=== PATIENT | male | born 1970 | race African-American/Black ===

== ENCOUNTER 2020-09-30 12:21 | Inpatient (IN) ==
[2020-09-30] MEDS ORDERED: SODIUM CHLORIDE 0.9% 1000ML 500 ML IV ONE (12:38)
--- NOTE | 2020-09-30 12:46 | Emergency Department Note ---
History of Present Illness General Chief complaint: Respiratory Problems Time Seen by Provider: 09/30/20 12:29 Source: patient and old records reviewed Mode of arrival: EMS Limitations: no limitations History of Present Illness This patient is a 49-year-old previously healthy male who comes in after having shortness of breath for the last 4 days. He is lost his taste and smell as well he has had a cough. He feels he is been chemo but his fluids no nausea vomiting or diarrhea. He is currently inmate at [facility] and they have a s ignificant Covid outbreak. The patient was hypoxemic with a room O2 sat of 75 per report and they put him on supplemental oxygen and he appears comfortable now. He is able to communicate and tells me he has no significant medical problems no history of any lung problems he is a remote history of smoking. No history of blood clots or heart problems. He denies that he has had a fever with this illness. Home Medications Medication Instructions Recorded Confirmed Type cholecalciferol (vitamin D3) 25 mcg PO DAILY 09/30/20 09/30/20 History [Vitamin D3] ciclesonide [Alvesco] 1 puff INHALATION BID 09/30/20 09/30/20 History ibuprofen 600 mg PO TID PRN 09/30/20 09/30/20 History levalbuterol tartrate [Xopenex HFA] 2 inh INHALATION Q6H 09/30/20 09/30/20 History sertraline 25 mg PO QAM 09/30/20 09/30/20 History sertraline 100 mg PO QAM 09/30/20 09/30/20 History zinc sulfate 220 mg PO BID 09/30/20 09/30/20 History Allergies Allergy/AdvReac Type Severity Reaction Status Date / Time No Known Allergies Allergy Unverified 09/30/20 14:32 Past Med/Surg History Medical History (Updated 09/30/20 @ 19:00 by Dominic Lawson MD) Asthma Post traumatic stress disorder Vertigo Social History Smoking Status: Former smoker Tobacco Type: Cigarettes Preferred Language: Lao Feels Safe at Home: Yes Immunizations: Past medical history, denies cardiac disease, pulmonary disease, diabetes Social historyhe is an inmate since 2016. history of smoking Review of Systems A total of 10 systems reviewed and were otherwise negative Physical Exam Vital Signs Vital Signs - 24 hr 09/30/20 12:09 09/30/20 12:28 09/30/20 12:37 Temperature 36.9 C Temperature Source Oral Pulse Rate 102 H 103 H 100 H Pulse Rate from SpO2 Sensor 103 H 100 H Pulse Rhythm Regular Pulse Strength Normal Respiratory Rate 28 H 28 H 18 Respiratory Effort / Characteristics Non-Labored Spontaneous Respiratory Depth Shallow Respiratory Pattern Tachypnea Blood Pressure 99/82 L 99/82 L 125/87 Blood Pressure Mean 87 84 99 Blood Pressure Position Lying Pulse Oximetry 88 L 97 98 Oxygen Delivery Method Room Air Non-rebreather Non-rebreather Oxygen Flow Rate 15 15 Sepsis Recent Fever Within 48 Hours No Sepsis New/Unexplained Change in Mental Status N/A Sepsis Action Taken by Nursing Physician Notified Oxygen Flow Rate - Titration Pulse Oximetry Post Tiitration 09/30/20 12:38 09/30/20 13:00 09/30/20 13:30 Temperature Temperature Source Pulse Rate 102 H 102 H 96 H Pulse Rate from SpO2 Sensor 102 H 95 H Pulse Rhythm Regular Pulse Strength Respiratory Rate 19 29 H 28 H Respiratory Effort / Characteristics Respiratory Depth Respiratory Pattern Blood Pressure 114/76 108/80 Blood Pressure Mean 84 99 Blood Pressure Position Pulse Oximetry 92 98 97 Oxygen Delivery Method Non-rebreather Non-rebreather Oxygen Flow Rate 15 15 Sepsis Recent Fever Within 48 Hours Sepsis New/Unexplained Change in Mental Status Sepsis Action Taken by Nursing Oxygen Flow Rate - Titration 15 Pulse Oximetry Post Tiitration 96 09/30/20 14:00 09/30/20 14:30 09/30/20 15:00 Temperature Temperature Source Pulse Rate 93 H 92 H 96 H Pulse Rate from SpO2 Sensor 94 H 93 H 95 H Pulse Rhythm Pulse Strength Respiratory Rate 27 H 25 H 19 Respiratory Effort / Characteristics Respiratory Depth Respiratory Pattern Blood Pressure 97/61 L 119/71 100/63 Blood Pressure Mean 65 75 74 Blood Pressure Position Pulse Oximetry 97 98 97 Oxygen Delivery Method Oxygen Flow Rate Sepsis Recent Fever Within 48 Hours Sepsis New/Unexplained Change in Mental Status Sepsis Action Taken by Nursing Oxygen Flow Rate - Titration Pulse Oximetry Post Tiitration 09/30/20 15:30 09/30/20 16:30 09/30/20 17:00 Temperature Temperature Source Pulse Rate 94 H Pulse Rate from SpO2 Sensor 94 H 89 90 Pulse Rhythm Pulse Strength Respiratory Rate 24 22 24 Respiratory Effort / Characteristics Respiratory Depth Respiratory Pattern Blood Pressure 95/57 L 119/83 126/85 Blood Pressure Mean 68 97 95 Blood Pressure Position Pulse Oximetry 98 94 95 Oxygen Delivery Method Oxygen Flow Rate Sepsis Recent Fever Within 48 Hours Sepsis New/Unexplained Change in Mental Status Sepsis Action Taken by Nursing Oxygen Flow Rate - Titration Pulse Oximetry Post Tiitration 09/30/20 17:30 Temperature Temperature Source Pulse Rate Pulse Rate from SpO2 Sensor 91 H Pulse Rhythm Pulse Strength Respiratory Rate 25 H Respiratory Effort / Characteristics Respiratory Depth Respiratory Pattern Blood Pressure 145/94 H Blood Pressure Mean 102 Blood Pressure Position Pulse Oximetry 97 Oxygen Delivery Method Oxygen Flow Rate Sepsis Recent Fever Within 48 Hours Sepsis New/Unexplained Change in Mental Status Sepsis Action Taken by Nursing Oxygen Flow Rate - Titration Pulse Oximetry Post Tiitration General: Well developed well nourished middle-age male who is on supplemental oxygen and with this appears comfortable in no acute distress. Normal speech HEENT: Normal cephalic atraumatic. Pupils are equal round and reactive to light. Extraocular movements are intact. Oropharynx is pink with moist mucous membranes. No swelling of the mouth lips or tongue. Neck: Supple with a midline trachea. No meningeal signs or stiffness, no JVD or bruits. No Stridor. Chest: Speaking full sentences, mild increased expiratory effort but seems comfortable with the oxygen Heart: Regular rate and rhythm without murmurs or gallops. Abdomen: Soft nontender, nondistended without rebound guarding or rigidity. Extremities: No cyanosis clubbing or edema. No calf tenderness or assymetry Spine/Back. Non tender to palpation. No CVA tenderness Skin: Good turgor without rashes. Neurologic exam: Cranial nerves two through 12 are intact. Motor and sensation are intact and symmetrical throughout. Course Administered Medications Remdesivir 200 mg/ Sodium (Chloride) 250 mls @ 125 mls/hr IV ONE ONE; Protocol Stop: 09/30/20 19:59 Last Admin: 09/30/20 18:30 Dose: 125 mls/hr Documented by: [id number] Discontinued Medications Dexamethasone (Dexamethasone Sod Inj 10 Mg/Ml Vial) 6 mg IV NOW ONE Stop: 09/30/20 14:14 Last Admin: 09/30/20 14:54 Dose: 6 mg Documented by: [id number] Sodium Chloride (Nss 1000ml) 500 mls @ 999 mls/hr IV .Q31M ONE Stop: 09/30/20 13:08 Last Infusion: 09/30/20 14:54 Dose: 0 mls/hr Documented by: [id number] Admin: 09/30/20 12:47 Dose: 999 mls/hr Documented by: [id number] Critical Care Time Critical Care Time: Yes (30) Total Critical Care Time: 30 Due to the patient's hypoxemia, Covid illness, need for supplemental oxygen, frequent monitoring of his vital signs and consultation and hospitalization, I have personally spent greater than 30 minutes of critical care time in the direct management of this patient. This includes bedside care, interpretation of diagnostic studies, and testing, discussion with consultants, patient, and family members, and other required patient management activities. This 30 minutes is in excess of all separately billable procedures. Medical Decision Making Differential Diagnosis Covid, sepsis, anemia, acute coronary syndrome, arrhythmia, PE, pneumonia, pneumothorax, electrolyte or metabolic Medical Records Attestation: I reviewed the patient's medical records. Home Medications Current Medication List: was personally reviewed by me Laboratory Data Attestation: I reviewed the patient's lab results. Result diagrams: 09/30/20 12:39 09/30/20 15:51 Lab Results 09/30/20 09/30/20 09/30/20 Range/Units 12:38 12:39 12:39 WBC 8.65 (4.8-10.8) K/uL RBC 5.05 (4.7-6.1) M/uL Hgb 15.0 (14.0-18.0) g/dL Hct 43.3 (42-52) % MCV 85.7 (80-100) fL MCH 29.7 (25-34) pg MCHC 34.6 (32-36) g/dL RDW Std Deviation 41.7 (36.4-46.3) fL RDW Coeff of Anamaria 13.3 (11.5-14.5) % Plt Count 220 (130-400) K/uL MPV 10.9 H (7.4-10.4) fL Immature Gran % (Auto) 0.5 % Neut % (Auto) 81.7 % Lymph % (Auto) 10.9 % Mathews % (Auto) 6.5 % Eos % (Auto) 0.2 % Baso % (Auto) 0.2 % Neut # (Auto) 7.07 H (1.4-6.5) K/uL Lymph # (Auto) 0.94 L (1.2-3.4) K/uL Mathews # (Auto) 0.56 (0.11-0.59) K/uL Eos # (Auto) 0.02 (0-0.5) K/uL Baso # (Auto) 0.02 (0-0.2) K/uL Immature Gran # (Auto) 0.04 H (0.00-0.02) K/uL PT 11.5 (9.0-12.0) Seconds INR 1.1 (0.9-1.1) APTT 27.6 (21.0-31.0) Seconds PTT Ratio 1.0 D-Dimer (0-500) ug/L FEU Sodium Cancelled Potassium Cancelled Chloride Cancelled Carbon Dioxide Cancelled Anion Gap Cancelled BUN Cancelled Creatinine Cancelled Est Cr Clr Drug Dosing Cancelled Est GFR ( Amer) Cancelled Est GFR (Non-Af Amer) Cancelled BUN/Creatinine Ratio Cancelled Glucose Cancelled Lactate (0.4-2.0) mmol/L Calcium Cancelled Magnesium Cancelled Ferritin (8-388) ng/ml Total Bilirubin Cancelled AST Cancelled ALT Cancelled Alkaline Phosphatase Cancelled Lactate Dehydrogenase (87-241) U/L Total Creatine Kinase (39-308) U/L Troponin I Cancelled C-Reactive Protein (0-0.29) mg/dl NT-Pro-B Natriuret Pep Cancelled Total Protein Cancelled Albumin Cancelled Globulin Cancelled Albumin/Globulin Ratio Cancelled Procalcitonin (0-0.5) ng/ml COVID-19 Eval Order SARS-CoV-2 (PCR) (Negative) Influenza Type A (PCR) (Neg) Influenza Type B (PCR) (Neg) RSV (RT-PCR) (Neg) Blood Type Antibody Screen 09/30/20 09/30/20 09/30/20 Range/Units 12:39 12:55 12:55 WBC (4.8-10.8) K/uL RBC (4.7-6.1) M/uL Hgb (14.0-18.0) g/dL Hct (42-52) % MCV (80-100) fL MCH (25-34) pg MCHC (32-36) g/dL RDW Std Deviation (36.4-46.3) fL RDW Coeff of Anamaria (11.5-14.5) % Plt Count (130-400) K/uL MPV (7.4-10.4) fL Immature Gran % (Auto) % Neut % (Auto) % Lymph % (Auto) % Mathews % (Auto) % Eos % (Auto) % Baso % (Auto) % Neut # (Auto) (1.4-6.5) K/uL Lymph # (Auto) (1.2-3.4) K/uL Mathews # (Auto) (0.11-0.59) K/uL Eos # (Auto) (0-0.5) K/uL Baso # (Auto) (0-0.2) K/uL Immature Gran # (Auto) (0.00-0.02) K/uL PT (9.0-12.0) Seconds INR (0.9-1.1) APTT (21.0-31.0) Seconds PTT Ratio D-Dimer (0-500) ug/L FEU Sodium Potassium Chloride Carbon Dioxide Anion Gap BUN Creatinine Est Cr Clr Drug Dosing Est GFR ( Amer) Est GFR (Non-Af Amer) BUN/Creatinine Ratio Glucose Lactate 2.1 H* (0.4-2.0) mmol/L Calcium Magnesium Ferritin (8-388) ng/ml Total Bilirubin AST ALT Alkaline Phosphatase Lactate Dehydrogenase (87-241) U/L Total Creatine Kinase (39-308) U/L Troponin I C-Reactive Protein (0-0.29) mg/dl NT-Pro-B Natriuret Pep Total Protein Albumin Globulin Albumin/Globulin Ratio Procalcitonin (0-0.5) ng/ml COVID-19 Eval Order CovFluRsv at [facility] SARS-CoV-2 (PCR) POSITIVE A* (Negative) Influenza Type A (PCR) Negative (Neg) Influenza Type B (PCR) Negative (Neg) RSV (RT-PCR) Negative (Neg) Blood Type Antibody Screen 09/30/20 09/30/20 09/30/20 Range/Units 15:51 15:51 15:51 WBC (4.8-10.8) K/uL RBC (4.7-6.1) M/uL Hgb (14.0-18.0) g/dL Hct (42-52) % MCV (80-100) fL MCH (25-34) pg MCHC (32-36) g/dL RDW Std Deviation (36.4-46.3) fL RDW Coeff of Anamaria (11.5-14.5) % Plt Count (130-400) K/uL MPV (7.4-10.4) fL Immature Gran % (Auto) % Neut % (Auto) % Lymph % (Auto) % Mathews % (Auto) % Eos % (Auto) % Baso % (Auto) % Neut # (Auto) (1.4-6.5) K/uL Lymph # (Auto) (1.2-3.4) K/uL Mathews # (Auto) (0.11-0.59) K/uL Eos # (Auto) (0-0.5) K/uL Baso # (Auto) (0-0.2) K/uL Immature Gran # (Auto) (0.00-0.02) K/uL PT (9.0-12.0) Seconds INR (0.9-1.1) APTT (21.0-31.0) Seconds PTT Ratio D-Dimer (0-500) ug/L FEU Sodium 132 L Potassium 3.9 Chloride 102 Carbon Dioxide 25 Anion Gap 5.0 BUN 18 Creatinine 1.17 Est Cr Clr Drug Dosing 110.2 Est GFR ( Amer) 84.9 Est GFR (Non-Af Amer) 73.3 BUN/Creatinine Ratio 15.5 Glucose 116 H Lactate 1.4 (0.4-2.0) mmol/L Calcium 8.0 L Magnesium 2.8 H Ferritin (8-388) ng/ml Total Bilirubin 0.9 AST 50 H ALT 53 Alkaline Phosphatase 49 Lactate Dehydrogenase (87-241) U/L Total Creatine Kinase (39-308) U/L Troponin I < 0.015 C-Reactive Protein (0-0.29) mg/dl NT-Pro-B Natriuret Pep 9 Total Protein 7.4 Albumin 2.6 L Globulin 4.8 H Albumin/Globulin Ratio 0.5 L Procalcitonin (0-0.5) ng/ml COVID-19 Eval Order SARS-CoV-2 (PCR) (Negative) Influenza Type A (PCR) (Neg) Influenza Type B (PCR) (Neg) RSV (RT-PCR) (Neg) Blood Type A Positive Antibody Screen NEGATIVE 09/30/20 09/30/20 09/30/20 Range/Units 15:51 15:51 15:51 WBC (4.8-10.8) K/uL RBC (4.7-6.1) M/uL Hgb (14.0-18.0) g/dL Hct (42-52) % MCV (80-100) fL MCH (25-34) pg MCHC (32-36) g/dL RDW Std Deviation (36.4-46.3) fL RDW Coeff of Anamaria (11.5-14.5) % Plt Count (130-400) K/uL MPV (7.4-10.4) fL Immature Gran % (Auto) % Neut % (Auto) % Lymph % (Auto) % Mathews % (Auto) % Eos % (Auto) % Baso % (Auto) % Neut # (Auto) (1.4-6.5) K/uL Lymph # (Auto) (1.2-3.4) K/uL Mathews # (Auto) (0.11-0.59) K/uL Eos # (Auto) (0-0.5) K/uL Baso # (Auto) (0-0.2) K/uL Immature Gran # (Auto) (0.00-0.02) K/uL PT (9.0-12.0) Seconds INR (0.9-1.1) APTT (21.0-31.0) Seconds PTT Ratio D-Dimer 3170 H* (0-500) ug/L FEU Sodium Potassium Chloride Carbon Dioxide Anion Gap BUN Creatinine Est Cr Clr Drug Dosing Est GFR ( Amer) Est GFR (Non-Af Amer) BUN/Creatinine Ratio Glucose Lactate (0.4-2.0) mmol/L Calcium Magnesium Ferritin 1265.7 H (8-388) ng/ml Total Bilirubin AST ALT Alkaline Phosphatase Lactate Dehydrogenase 612 H (87-241) U/L Total Creatine Kinase 803 H (39-308) U/L Troponin I < 0.015 C-Reactive Protein 14.60 H (0-0.29) mg/dl NT-Pro-B Natriuret Pep Total Protein Albumin Globulin Albumin/Globulin Ratio Procalcitonin (0-0.5) ng/ml COVID-19 Eval Order SARS-CoV-2 (PCR) (Negative) Influenza Type A (PCR) (Neg) Influenza Type B (PCR) (Neg) RSV (RT-PCR) (Neg) Blood Type Antibody Screen 09/30/20 Range/Units 15:51 WBC (4.8-10.8) K/uL RBC (4.7-6.1) M/uL Hgb (14.0-18.0) g/dL Hct (42-52) % MCV (80-100) fL MCH (25-34) pg MCHC (32-36) g/dL RDW Std Deviation (36.4-46.3) fL RDW Coeff of Anamaria (11.5-14.5) % Plt Count (130-400) K/uL MPV (7.4-10.4) fL Immature Gran % (Auto) % Neut % (Auto) % Lymph % (Auto) % Mathews % (Auto) % Eos % (Auto) % Baso % (Auto) % Neut # (Auto) (1.4-6.5) K/uL Lymph # (Auto) (1.2-3.4) K/uL Mathews # (Auto) (0.11-0.59) K/uL Eos # (Auto) (0-0.5) K/uL Baso # (Auto) (0-0.2) K/uL Immature Gran # (Auto) (0.00-0.02) K/uL PT (9.0-12.0) Seconds INR (0.9-1.1) APTT (21.0-31.0) Seconds PTT Ratio D-Dimer (0-500) ug/L FEU Sodium Potassium Chloride Carbon Dioxide Anion Gap BUN Creatinine Est Cr Clr Drug Dosing Est GFR ( Amer) Est GFR (Non-Af Amer) BUN/Creatinine Ratio Glucose Lactate (0.4-2.0) mmol/L Calcium Magnesium Ferritin (8-388) ng/ml Total Bilirubin AST ALT Alkaline Phosphatase Lactate Dehydrogenase (87-241) U/L Total Creatine Kinase (39-308) U/L Troponin I C-Reactive Protein (0-0.29) mg/dl NT-Pro-B Natriuret Pep Total Protein Albumin Globulin Albumin/Globulin Ratio Procalcitonin 0.10 (0-0.5) ng/ml COVID-19 Eval Order SARS-CoV-2 (PCR) (Negative) Influenza Type A (PCR) (Neg) Influenza Type B (PCR) (Neg) RSV (RT-PCR) (Neg) Blood Type Antibody Screen Imaging Data Attestation: I personally reviewed and interpreted this imaging study as follows: My Impression: Chest x-ray ECG Data Attestation: I personally reviewed and interpreted this ECG as follows: Indication: + chest pain MDM Narrative This patient comes in with respiratory distress distress/hypoxemia CC seems much more comfortable with oxygen. He is speaking full sentences now. He likely has Covid he was placed on respiratory isolation. There have been multiple exposures to Covid and he was previously healthy otherwise. Extensive work-up done here including multiple blood test x-ray EKG Covid testing, etc. he remained stable on supplemental oxygen. His chest x-ray shows diffuse infiltrates consistent with Covid with some asymmetry to the right. He has no white count to suggest bacterial infection. His Covid test did come back positive. He has no significant electrolyte or metabolic abnormality. EKG does not suggest cardiac disease. He did receive IV hydration as well as IV Decadron. His lactic acid was mildly elevated 2.1 but it did clear with fluid resuscitation to 1.4. I do think he needs to be admitted/observe for his Covid treatment and hypoxemia. I have consulted the hospitalist to see him in the ER for these measures Continuous cardiac monitoring: Order was placed in the EMR for continuous cardiac monitoring which shows normal sinus rhythm at a rate of 95 Impression & Plan COVID-19, Hypoxemia, SOB (shortness of breath), Elevated lactic acid level Discharge Plan Visit Data Chief Complaint: Respiratory Problems ED Provider: Dominic Lawson Discharge Problem: COVID-19, Hypoxemia, SOB (shortness of breath), Elevated lactic acid level Forms Stand Alone Forms: My [facility] Revert Prescriptions Prescriptions: No Action sertraline 100 mg Tablet 100 mg PO QAM RF: 0 zinc sulfate 220 mg Tablet 220 mg PO BID RF: 0 sertraline 25 mg Tablet 25 mg PO QAM RF: 0 ibuprofen 600 mg Tablet 600 mg PO TID PRN (Reason: Pain) RF: 0 cholecalciferol (vitamin D3) [Vitamin D3] 25 mcg (1,000 unit) Capsule 25 mcg PO DAILY RF: 0 levalbuterol tartrate [Xopenex HFA] 45 mcg/actuation Hfa Aerosol Inhaler 2 inh INHALATION Q6H RF: 0 Alvesco 160 mcg/actuation Hfa Aerosol Inhaler 1 puff INHALATION BID RF: 0
[2020-09-30 12:51] LABS: Basophils # (auto) 0.02 K/uL (0-0.2); Basophils % (auto) 0.2 %; Eosinophils # (auto) 0.02 K/uL (0-0.5); Eosinophils % (auto) 0.2 %; Hematocrit (blood only) 43.3 % (42-52); Immature Granulocytes # (auto) 0.04 K/uL (0.00-0.02); Immature Granulocytes % (auto) 0.5 %; Lymphocytes # (auto) 0.94 K/uL (1.2-3.4); Lymphocytes % (auto) 10.9 %; Mean Corpuscular Hemoglobin 29.7 pg (25-34); Mean Corpuscular Hgb Conc 34.6 g/dL (32-36); Mean Corpuscular Volume 85.7 fL (80-100); Mean Platelet Volume 10.9 fL (7.4-10.4); Monocytes # (auto) 0.56 K/uL (0.11-0.59); Monocytes % (auto) 6.5 %; Neutrophils # (auto) 7.07 K/uL (1.4-6.5); Neutrophils % (auto) 81.7 %; Platelet Count 220 K/uL (130-400); RDW Coefficient of Variation 13.3 % (11.5-14.5); RDW Standard Deviation 41.7 fL (36.4-46.3); Red Blood Count 5.05 M/uL (4.7-6.1); White Blood Count 8.65 K/uL (4.8-10.8)
--- NOTE | 2020-09-30 13:02 | Electrocardiogram Report ---
Test Reason : Blood Pressure : / mmHG Vent. Rate : 100 BPM Atrial Rate : 100 BPM P-R Int : 148 ms QRS Dur : 084 ms QT Int : 332 ms P-R-T Axes : 033 -29 000 degrees QTc Int : 428 ms Sinus tachycardia Otherwise Normal ECG No previous ECGs available Confirmed by Jr Zeng [id number]) on 09/30/2020 1:02:28 PM Referred By: Reshma CERDA Confirmed By:Jr Zeng
--- NOTE | 2020-09-30 13:13 | XRay Report ---
XR chest 1V portable CLINICAL HISTORY: SEPSIS COMPARISON STUDY: No previous studies for comparison. FINDINGS: The heart is the upper limits of normal in size. There are asymmetric bilateral multifocal airspace opacities consistent with a multifocal pneumonia. The findings are more severe on the right. There are no significant pleural effusions.[ IMPRESSION: Asymmetric multifocal airspace opacities right greater than left consistent with a multif ocal pneumonia ACT 112: Negative or not required by law. Electronically signed by: Azam Lott M.D. 09/30/2020 1:12 PM
[2020-09-30 13:16] LABS: INR 1.1 (0.9-1.1); Partial Thromboplastin Time 27.6 Seconds (21.0-31.0); Prothrombin Time 11.5 Seconds (9.0-12.0)
[2020-09-30] MEDS ORDERED: DEXAMETHASONE SOD INJ 10 MG/ML VIAL IV ONE (14:13)
[2020-09-30 14:20] LABS: Influenza A virus by PCR Negative (Neg); Influenza B virus by PCR Negative (Neg); RSV by PCR Negative (Neg)
[2020-09-30 14:24] LABS: SARS CoV2 RNA(COVID-19) InHosp POSITIVE (Negative)
--- NOTE | 2020-09-30 14:52 | History & Physical Report ---
Date of Service September 30, 2020 Assessment & Plan (1) Acute respiratory failure with hypoxia: Aim O2 sats > 90%. Secondary to COVID-19 pneumonia. Given severity of sudden onset oxygen requirement and elevated D-dimer will get CT for PE to rule this out. Procalcitonin negative however asymmetric findings on CXR mildly concerning for bacterial pneumonia - will repeat procalcitonin in AM. (2) Pneumonia due to COVID-19 virus: Dexamethasone 6mg IV daily for total 10 days. Given symptoms for only 4 days and severity of illness will give Remdesivir and convalescent plasma (verbal consent gained with blood consent sheet given to patient) (3) Asthma: Continue Alvesco or hospital formulary equivalent No wheezing to suggest acute exacerbation (4) Post traumatic stress disorder: Continue sertraline 125mg PO daily (5) DVT prophylaxis: Elevated d-dimer. BMI > 35. Therefore will give increased dose prophylaxis 0.5mg/kg BID. Admission and Anticipated Discharge Date Admission Date: September 30, 2020 History of Present Illness Chief Complaint: Shortness of breath Primary Care Provider: PRASHANT Cortes is a 49-year-old male from [facility] with a 4-day history of shortness of breath, productive cough. O2 sats [facility] today were 75% on room air. He was placed on a nonrebreather mask at 15 L with improved O2 sats of 92%. The patient significantly improved since arrival in the ER and start oxygen. Reports his main symptom is shortness of breath worse with coughing, exertion and lying flat. He notes a history of asthma but rarely requires his albuterol inhaler and hasn't helped much during this current illness. Productive cough with thick sputum. Other symptoms include loss of taste and smell, fatigue, mild headache and myalgias. He denies any fever, chills, sore throat, diarrhea, nausea/vomiting, chest or abdominal pain. In the ER his CXR concerning for multifocal pneumonia, subsequent SARS-COV2 PCR positive, influenza and RSV negative. He was given dexamethasone 6mg IV and referred to medicine for admission and ongoing management of COVID-19 pneumonia. Allergies Allergy/AdvReac Type Severity Reaction Status Date / Time No Known Allergies Allergy Unverified 09/30/20 14:32 Home Medications Medication Instructions Recorded Confirmed Type cholecalciferol (vitamin D3) 25 mcg PO DAILY 09/30/20 09/30/20 History [Vitamin D3] ciclesonide [Alvesco] 1 puff INHALATION BID 09/30/20 09/30/20 History ibuprofen 600 mg PO TID PRN 09/30/20 09/30/20 History levalbuterol tartrate [Xopenex HFA] 2 inh INHALATION Q6H 09/30/20 09/30/20 History sertraline 25 mg PO QAM 09/30/20 09/30/20 History sertraline 100 mg PO QAM 09/30/20 09/30/20 History zinc sulfate 220 mg PO BID 09/30/20 09/30/20 History Past Med/Surg History Medical History Asthma Post traumatic stress disorder Vertigo Social History Smoking Status: Former smoker Tobacco Type: Cigarettes Hx Alcohol Use: No Hx Substance Use: No Preferred Language: Urdu Communication Ability: Effective Outdoor Emergency Care Technician Required: No Beliefs That Will Affect Care: None Current Living Situation: Other Current Living Situation Comment: [facility] Other Information That Helps Us Care for You: No Feels Safe at Home: Yes Assistive Devices: None Review of Systems Review of Systems: All systems reviewed & are unremarkable except as noted in HPI & below Physical Exam Constitutional: well developed, well nourished and + acute distress (respiratory) Eyes: PERRL, conjunctivae normal, anicteric sclerae ENMT: external ear and nose normal, oropharynx normal Neck: trachea midline, no thyromegaly Respiratory: + retractions, + uses accessory muscles, + cough and able to speak in complete sentences Auscultation: + diminished lung sounds (bibasal) and + crackles (bibasal); no rhonchi and no wheezes Cardiovascular: Rate/Rhythm: regular rhythm and + tachycardic Heart Sounds: no murmur Vessels: no JVD Extremities: normal capillary refill; no calf tenderness and no pedal edema Gastrointestinal (Abdomen): normal bowel sounds, soft, nontender, no hepatosplenomegaly Musculoskeletal: no cyanosis or clubbing, extremities motor strength 5/5 Skin: no rashes, warm and dry Neurologic: moves all extremities and awake; no focal motor deficits and not confused Speech / Cognition: normal speech Psychiatric: A+Ox3, euthymic affect Results & Data Results & Data ([facility]) Vital Signs (Past 12 Hours) Vital Signs Temp Pulse Resp BP Pulse Ox 09/30/20 13:00 102 H 29 H 114/76 98 09/30/20 12:38 102 H 19 96 09/30/20 12:37 100 H 18 125/87 98 09/30/20 12:28 103 H 28 H 99/82 L 97 09/30/20 12:09 36.9 C 102 H 28 H 99/82 L 88 L Diagnostic Findings XR chest 1V portable IMPRESSION: Asymmetric multifocal airspace opacities right greater than left consistent with a multifocal pneumonia ECG Indication: SOB/dyspnea Rate (beats per minute): 100 Rhythm: sinus tachycardia Findings: no acute ischemic change Comparison ECG Date: no prior available Code Status & VTE Plan Code Status Full VTE Prophylaxis Plan VTE Prophylaxis will be ordered: Yes PG Care Time/CCT Total # of Minutes Spent Total Time Spent with Patient: Total time spent is greater than 50% in coordination of care (as documented) at patient's floor/unit and/or counseling patient: Coding Level of Care Code 98464 Initial Inpt Care Lvl 3 Diagnoses Acute respiratory failure with hypoxia J96.01 Pneumonia due to COVID-19 virus U07.1; J12.82 Asthma J45.909 Post traumatic stress disorder F43.10 DVT prophylaxis Z29.9
[2020-09-30 16:36] LABS: Alanine Aminotransferase 53 U/L (12-78); Albumin Level 2.6 gm/dl (3.4-5.0); Aspartate Aminotransferase 50 U/L (15-37); BUN Creatinine Ratio 15.5 (10-20); Blood Urea Nitrogen 18 mg/dl (7-18); Carbon Dioxide 25 mmol/L (21-32); Chloride 102 mmol/L (98-107); Creatinine Clr Calc Pharmacy 110.2 ml/min; Est GFR (African American) 84.9; Est GFR (Non-African American) 73.3; Glucose 116 mg/dl (70-99); Magnesium 2.8 mg/dl (1.8-2.4); Potassium 3.9 mmol/L (3.5-5.1); Sodium 132 mmol/L (136-145)
[2020-09-30 16:40] LABS: Creatine Kinase 803 U/L (39-308); Ferritin 1265.7 ng/ml (8-388); Troponin I < 0.015 ng/ml (0-0.045)
[2020-09-30 16:42] LABS: Albumin Globulin Ratio 0.5 (0.9-2); Alkaline Phosphatase 49 U/L (45-117); Bilirubin,Total 0.9 mg/dl (0.2-1); Globulin 4.8 gm/dl (2.5-4.0); NT Pro B Type Natriuretic Pept 9 pg/ml (0-450); Total Protein 7.4 gm/dl (6.4-8.2); Troponin I < 0.015 ng/ml (0-0.045)
[2020-09-30 16:44] LABS: D Dimer 3170 ug/L FEU (0-500)
[2020-09-30] MEDS ORDERED: REMDESIVIR 200 MG in SODIUM CHLORIDE 0.9% 210 ML IV ONE (18:00)
[2020-09-30] MEDS ORDERED: SODIUM CHLORIDE 0.9% 10ML FLUSH IV SCH (20:00)
[2020-09-30] MEDS ORDERED: POLYETHYLENE (MIRALAX) 17 GM PACK PO PRN (21:17)
[2020-09-30] MEDS ORDERED: ALUMINUM/MAGNESIUM SUSP 30 ML UDC PO PRN (21:17)
[2020-09-30] MEDS ORDERED: ACETAMINOPHEN 325 MG TAB PO PRN (21:17)
[2020-09-30] MEDS ORDERED: ONDANSETRON INJ 2 MG/ML 2 ML VIAL IV PRN (21:17)
[2020-09-30] MEDS: SODIUM CHLORIDE 0.9% 10ML FLUSH IV SCH (21:48)
[2020-09-30] MEDS ORDERED: ENOXAPARIN 0.5 MG/KG SQ SCH (22:45)
[2020-09-30 22:47] LABS: Appearance Urine Clear (Clear); Bacteria Urine Automated Negative (Negative); Bilirubin Urine Negative (Negative); Blood Urine Negative (Negative); Color Urine Dark Yellow; Epithelial Cell Urine Auto >30 /lpf (0-5); Glucose Urine UA Negative (Negative); Ketones Urine Negative (Negative); Leukocyte Esterase Urine Negative (Negative); Nitrite Urine Negative (Negative); Protein Urine 2+ (Negative); RBC Urine Automated 0-4 /hpf (0-4); Specific Gravity Urine 1.026 (1.000-1.030); Urobilinogen Urine Negative (Negative); pH Urine 5.5 (4.5-7.5)
[2020-09-30] MEDS ORDERED: ALBUTEROL HFA 8 GM INHALER INH PRN (22:59)
[2020-09-30 23:04] LABS: Mucus Urine Present (None Prsent)
[2020-09-30] MEDS: ENOXAPARIN 80 MG/0.8 ML SYR SQ SCH (23:29)
[2020-10-01] MEDS ORDERED: OPTIRAY 320 125ml IV ONE (00:07)
[2020-10-01 05:32] LABS: Basophils # (auto) 0.01 K/uL (0-0.2); Basophils % (auto) 0.1 %; Hematocrit (blood only) 40.2 % (42-52); Hemoglobin 13.8 g/dL (14.0-18.0); Immature Granulocytes # (auto) 0.04 K/uL (0.00-0.02); Immature Granulocytes % (auto) 0.5 %; Lymphocytes # (auto) 0.69 K/uL (1.2-3.4); Lymphocytes % (auto) 7.8 %; Mean Corpuscular Hemoglobin 29.5 pg (25-34); Mean Corpuscular Hgb Conc 34.3 g/dL (32-36); Mean Corpuscular Volume 85.9 fL (80-100); Mean Platelet Volume 9.4 fL (7.4-10.4); Monocytes # (auto) 0.55 K/uL (0.11-0.59); Monocytes % (auto) 6.2 %; Neutrophils # (auto) 7.55 K/uL (1.4-6.5); Neutrophils % (auto) 85.4 %; Platelet Count 242 K/uL (130-400); Red Blood Count 4.68 M/uL (4.7-6.1); White Blood Count 8.84 K/uL (4.8-10.8)
[2020-10-01 06:11] LABS: BUN Creatinine Ratio 20.7 (10-20); Creatinine Clr Calc Pharmacy 139.9 ml/min; Est GFR (African American) 113.6; Potassium 4.4 mmol/L (3.5-5.1)
--- NOTE | 2020-10-01 07:38 | CT Scan Report ---
CT ANGIOGRAM OF THE CHEST CLINICAL HISTORY: Cough and dyspnea. COMPARISON STUDY: Chest x-ray dated 09/30/2020. TECHNIQUE: Following the IV administration of 115 cc of Optiray 320, CT angiogram of the chest was pe rformed from the upper abdomen to the thoracic inlet utilizing the pulmonary embolus protocol. Images are reviewed in the axial, sagittal, and coronal planes. 3-D MIPS images are created and assessed. I V contrast was administered without complication. A dose lowering technique was utilized adhering to the principles of ALARA. CT DOSE: 586.68 mGycm FINDINGS: Thyroid: Imaged portions of the thyroid gland are normal in size and attenuation. Thoracic aorta: The thoracic aorta is normal in caliber and demonstrates standard 3-vessel arch anato my. No dissection is seen. Pulmonary vasculature: The pulmonary trunk is normal in caliber. There are no filling defects identif ied in main or lobar pulmonary branches to suggest pulmonary embolus. Evaluation of the peripheral br anches is degraded by lack of contrast opacification as well as motion artifact. Heart: The heart is normal in size and without pericardial effusion. Lungs and pleural spaces: Multifocal airspace consolidation is seen throughout both lungs. This is mo st confluent at the right lung base. No pleural effusion is identified. The trachea and central airwa ys are clear. Mediastinum: There are scattered subcentimeter mediastinal lymph nodes. Helga: Enlarged hilar lymph nodes measure up to 1.8 cm in short axis. Axillae: There is no axillary lymphadenopathy. Upper abdomen: The liver appears steatotic. There is a small hiatal hernia. Skeletal structures: No lytic or blastic bony lesions are seen. IMPRESSION: 1. There is no evidence of central pulmonary embolus in the main or lobar pulmonary arteries. The seg mental and subsegmental branches are not assessed. 2. Multifocal airspace consolidation is seen throughout both lungs and typical for multifocal pneumon ia. Clinical correlation will be required and radiographic follow-up to resolution is recommended. 3. No pleural effusion is seen. 4. Enlarged hilar lymph nodes are likely reactive. ACT 112: Negative or not required by law. Electronically signed by: Gerardo Barrios M.D. 10/01/2020 7:37 AM
--- NOTE | 2020-10-01 09:50 | Hospitalist Progress Note ---
Date of Service October 01, 2020 Assessment & Plan (1) Acute respiratory failure with hypoxia: Aim O2 sats > 90%. Secondary to COVID-19 pneumonia. no role for antibiotics, procalcitonin normal currently on NRB, try to wean down to nasal canula no distress (2) Pneumonia due to COVID-19 virus: Dexamethasone 6mg IV daily for total 10 days, day 2 received plasma on 09/30 Remdesivir daily x 5 days presented on day 5-6 of symptoms so still in the window for all treatments supportive care with supplemental oxygen, on NRB right now, no distress eating and drinking well anticipate him being here for at least a week to recover (3) Asthma: Continue Alvesco or hospital formulary equivalent No wheezing to suggest acute exacerbation (4) Post traumatic stress disorder: Continue sertraline 125mg PO daily (5) DVT prophylaxis: Elevated d-dimer. BMI > 35. Therefore will give increased dose prophylaxis 0.5mg/kg BID. Admission and Anticipated Discharge Date Admission Date: September 30, 2020 Subjective patient is feeling better than when he was admitted, no distress he is on NRB, saturations 94% he is eating and drinking well reviewed chart, reviewed labs, WBC normal, Cr normal, electrolytes stable CTA chest on admission showed no PE, showed bilateral ground glass opacities Review of Systems Review of Systems: All systems reviewed & are unremarkable except as noted in Subjective Constitutional: no fever, no chills, no sweats, no fatigue and no weakness Respiratory: + dyspnea and + dyspnea on exertion; no cough and no sputum production Cardiovascular: no chest pain and no edema Gastrointestinal: no abdominal pain, no nausea, no vomiting, no constipation and no diarrhea/loose stools Physical Exam Constitutional: well developed, cooperative, comfortable and + overweight; no acute distress Neck: trachea midline, no thyromegaly + thick neck Respiratory: + tachypneic; no respiratory distress and no cough Auscultation: lungs clear to auscultation bilaterally Cardiovascular: RRR, no murmur, no edema Gastrointestinal (Abdomen): normal bowel sounds, soft, nontender, no hepatosplenomegaly Musculoskeletal: no cyanosis or clubbing, extremities motor strength 5/5 Skin: no rashes, warm and dry Neurologic: patellar DTR's 2+ bilat, sensation intact and PERRL, EOMI, accommodation nl, no face palsy, no dysarthria Psychiatric: A+Ox3, euthymic affect Lymphatic: no cervical or axillary lymphadenopathy Results & Data Results & Data ([facility]) Vital Signs (Past 12 Hours) Vital Signs Temp Pulse Pulse Resp BP BP Pulse Ox 10/01/20 03:51 36.5 C 70 16 119/76 94 10/01/20 00:15 78 20 124/76 91 09/30/20 23:50 76 24 139/93 94 09/30/20 23:32 79 26 H 139/93 94 09/30/20 23:30 74 21 139/93 94 09/30/20 23:21 36.8 C 77 28 H 113/87 93 09/30/20 22:51 37.0 C 75 24 124/84 97 09/30/20 22:36 36.9 C 09/30/20 22:35 36.9 C 78 24 117/75 94 09/30/20 22:30 77 22 119/77 96 09/30/20 22:29 36.7 C 75 20 132/93 96 09/30/20 22:20 37.0 C 79 18 129/84 97 Pulse Ox 10/01/20 03:51 10/01/20 00:15 09/30/20 23:50 09/30/20 23:32 09/30/20 23:30 09/30/20 23:21 09/30/20 22:51 09/30/20 22:36 09/30/20 22:35 09/30/20 22:30 09/30/20 22:29 96 09/30/20 22:20 Laboratory Results Laboratory Results - last 24 hr 09/30/20 09/30/20 09/30/20 12:38 12:39 12:39 WBC 8.65 RBC 5.05 Hgb 15.0 Hct 43.3 MCV 85.7 MCH 29.7 MCHC 34.6 RDW Std Deviation 41.7 RDW Coeff of [place] 13.3 Plt Count 220 MPV 10.9 H Immature Gran % (Auto) 0.5 Neut % (Auto) 81.7 Lymph % (Auto) 10.9 [place] % (Auto) 6.5 Eos % (Auto) 0.2 Baso % (Auto) 0.2 Neut # (Auto) 7.07 H Lymph # (Auto) 0.94 L [place] # (Auto) 0.56 Eos # (Auto) 0.02 Baso # (Auto) 0.02 Immature Gran # (Auto) 0.04 H PT 11.5 INR 1.1 APTT 27.6 PTT Ratio 1.0 D-Dimer Sodium Cancelled Potassium Cancelled Chloride Cancelled Carbon Dioxide Cancelled Anion Gap Cancelled BUN Cancelled Creatinine Cancelled Est Cr Clr Drug Dosing Cancelled Est GFR ( Amer) Cancelled Est GFR (Non-Af Amer) Cancelled BUN/Creatinine Ratio Cancelled Glucose Cancelled Lactate Calcium Cancelled Magnesium Cancelled Ferritin Total Bilirubin Cancelled AST Cancelled ALT Cancelled Alkaline Phosphatase Cancelled Lactate Dehydrogenase Total Creatine Kinase Troponin I Cancelled C-Reactive Protein NT-Pro-B Natriuret Pep Cancelled Total Protein Cancelled Albumin Cancelled Globulin Cancelled Albumin/Globulin Ratio Cancelled Procalcitonin Urine Color Urine Appearance Urine pH Ur Specific [place] Urine Protein Urine Glucose (UA) Urine Ketones Urine Blood Urine Nitrite Urine Bilirubin Urine Urobilinogen Ur Leukocyte Esterase Urine WBC (Auto) Urine RBC (Auto) U Hyaline Cast (Auto) U Epithel Cells (Auto) Urine Bacteria (Auto) Ur Renal Epithelial Cell Granular Casts Urine Mucus COVID-19 Eval Order SARS-CoV-2 (PCR) Influenza Type A (PCR) Influenza Type B (PCR) RSV (RT-PCR) Blood Type Antibody Screen 09/30/20 09/30/20 09/30/20 12:39 12:55 12:55 WBC RBC Hgb Hct MCV MCH MCHC RDW Std Deviation RDW Coeff of [place] Plt Count MPV Immature Gran % (Auto) Neut % (Auto) Lymph % (Auto) [place] % (Auto) Eos % (Auto) Baso % (Auto) Neut # (Auto) Lymph # (Auto) [place] # (Auto) Eos # (Auto) Baso # (Auto) Immature Gran # (Auto) PT INR APTT PTT Ratio D-Dimer Sodium Potassium Chloride Carbon Dioxide Anion Gap BUN Creatinine Est Cr Clr Drug Dosing Est GFR ( Amer) Est GFR (Non-Af Amer) BUN/Creatinine Ratio Glucose Lactate 2.1 H* Calcium Magnesium Ferritin Total Bilirubin AST ALT Alkaline Phosphatase Lactate Dehydrogenase Total Creatine Kinase Troponin I C-Reactive Protein NT-Pro-B Natriuret Pep Total Protein Albumin Globulin Albumin/Globulin Ratio Procalcitonin Urine Color Urine Appearance Urine pH Ur Specific [place] Urine Protein Urine Glucose (UA) Urine Ketones Urine Blood Urine Nitrite Urine Bilirubin Urine Urobilinogen Ur Leukocyte Esterase Urine WBC (Auto) Urine RBC (Auto) U Hyaline Cast (Auto) U Epithel Cells (Auto) Urine Bacteria (Auto) Ur Renal Epithelial Cell Granular Casts Urine Mucus COVID-19 Eval Order CovFluRsv at [facility] SARS-CoV-2 (PCR) POSITIVE A* Influenza Type A (PCR) Negative Influenza Type B (PCR) Negative RSV (RT-PCR) Negative Blood Type Antibody Screen 09/30/20 09/30/20 09/30/20 15:51 15:51 15:51 WBC RBC Hgb Hct MCV MCH MCHC RDW Std Deviation RDW Coeff of [place] Plt Count MPV Immature Gran % (Auto) Neut % (Auto) Lymph % (Auto) [place] % (Auto) Eos % (Auto) Baso % (Auto) Neut # (Auto) Lymph # (Auto) [place] # (Auto) Eos # (Auto) Baso # (Auto) Immature Gran # (Auto) PT INR APTT PTT Ratio D-Dimer Sodium 132 L Potassium 3.9 Chloride 102 Carbon Dioxide 25 Anion Gap 5.0 BUN 18 Creatinine 1.17 Est Cr Clr Drug Dosing 110.2 Est GFR ( Amer) 84.9 Est GFR (Non-Af Amer) 73.3 BUN/Creatinine Ratio 15.5 Glucose 116 H Lactate 1.4 Calcium 8.0 L Magnesium 2.8 H Ferritin Total Bilirubin 0.9 AST 50 H ALT 53 Alkaline Phosphatase 49 Lactate Dehydrogenase Total Creatine Kinase Troponin I < 0.015 C-Reactive Protein NT-Pro-B Natriuret Pep 9 Total Protein 7.4 Albumin 2.6 L Globulin 4.8 H Albumin/Globulin Ratio 0.5 L Procalcitonin Urine Color Urine Appearance Urine pH Ur Specific [place] Urine Protein Urine Glucose (UA) Urine Ketones Urine Blood Urine Nitrite Urine Bilirubin Urine Urobilinogen Ur Leukocyte Esterase Urine WBC (Auto) Urine RBC (Auto) U Hyaline Cast (Auto) U Epithel Cells (Auto) Urine Bacteria (Auto) Ur Renal Epithelial Cell Granular Casts Urine Mucus COVID-19 Eval Order SARS-CoV-2 (PCR) Influenza Type A (PCR) Influenza Type B (PCR) RSV (RT-PCR) Blood Type A Positive Antibody Screen NEGATIVE 09/30/20 09/30/20 09/30/20 15:51 15:51 15:51 WBC RBC Hgb Hct MCV MCH MCHC RDW Std Deviation RDW Coeff of [place]aria Plt Count MPV Immature Gran % (Auto) Neut % (Auto) Lymph % (Auto) [place] % (Auto) Eos % (Auto) Baso % (Auto) Neut # (Auto) Lymph # (Auto) [place] # (Auto) Eos # (Auto) Baso # (Auto) Immature Gran # (Auto) PT INR APTT PTT Ratio D-Dimer 3170 H* Sodium Potassium Chloride Carbon Dioxide Anion Gap BUN Creatinine Est Cr Clr Drug Dosing Est GFR ( Amer) Est GFR (Non-Af Amer) BUN/Creatinine Ratio Glucose Lactate Calcium Magnesium Ferritin 1265.7 H Total Bilirubin AST ALT Alkaline Phosphatase Lactate Dehydrogenase 612 H Total Creatine Kinase 803 H Troponin I < 0.015 C-Reactive Protein 14.60 H NT-Pro-B Natriuret Pep Total Protein Albumin Globulin Albumin/Globulin Ratio Procalcitonin Urine Color Urine Appearance Urine pH Ur Specific [place] Urine Protein Urine Glucose (UA) Urine Ketones Urine Blood Urine Nitrite Urine Bilirubin Urine Urobilinogen Ur Leukocyte Esterase Urine WBC (Auto) Urine RBC (Auto) U Hyaline Cast (Auto) U Epithel Cells (Auto) Urine Bacteria (Auto) Ur Renal Epithelial Cell Granular Casts Urine Mucus COVID-19 Eval Order SARS-CoV-2 (PCR) Influenza Type A (PCR) Influenza Type B (PCR) RSV (RT-PCR) Blood Type Antibody Screen 09/30/20 09/30/20 10/01/20 15:51 22:15 05:10 WBC 8.84 RBC 4.68 L Hgb 13.8 L Hct 40.2 L MCV 85.9 MCH 29.5 MCHC 34.3 RDW Std Deviation 41.0 RDW Coeff of [place]amaria 13.0 Plt Count 242 MPV 9.4 Immature Gran % (Auto) 0.5 Neut % (Auto) 85.4 Lymph % (Auto) 7.8 [place] % (Auto) 6.2 Eos % (Auto) 0.0 Baso % (Auto) 0.1 Neut # (Auto) 7.55 H Lymph # (Auto) 0.69 L [place] # (Auto) 0.55 Eos # (Auto) 0.00 Baso # (Auto) 0.01 Immature Gran # (Auto) 0.04 H PT INR APTT PTT Ratio D-Dimer Sodium Potassium Chloride Carbon Dioxide Anion Gap BUN Creatinine Est Cr Clr Drug Dosing Est GFR ( Amer) Est GFR (Non-Af Amer) BUN/Creatinine Ratio Glucose Lactate Calcium Magnesium Ferritin Total Bilirubin AST ALT Alkaline Phosphatase Lactate Dehydrogenase Total Creatine Kinase Troponin I C-Reactive Protein NT-Pro-B Natriuret Pep Total Protein Albumin Globulin Albumin/Globulin Ratio Procalcitonin 0.10 Urine Color Dark Yellow Urine Appearance Clear Urine pH 5.5 Ur Specific [place] 1.026 Urine Protein 2+ H Urine Glucose (UA) Negative Urine Ketones Negative Urine Blood Negative Urine Nitrite Negative Urine Bilirubin Negative Urine Urobilinogen Negative Ur Leukocyte Esterase Negative Urine WBC (Auto) 1-5 Urine RBC (Auto) 0-4 U Hyaline Cast (Auto) 1-5 U Epithel Cells (Auto) >30 H Urine Bacteria (Auto) Negative Ur Renal Epithelial Cell Not Reportable Granular Casts 1-5 H Urine Mucus Present A COVID-19 Eval Order SARS-CoV-2 (PCR) Influenza Type A (PCR) Influenza Type B (PCR) RSV (RT-PCR) Blood Type Antibody Screen 10/01/20 05:10 WBC RBC Hgb Hct MCV MCH MCHC RDW Std Deviation RDW Coeff of Anamaria Plt Count MPV Immature Gran % (Auto) Neut % (Auto) Lymph % (Auto) [place] % (Auto) Eos % (Auto) Baso % (Auto) Neut # (Auto) Lymph # (Auto) [place] # (Auto) Eos # (Auto) Baso # (Auto) Immature Gran # (Auto) PT INR APTT PTT Ratio D-Dimer Sodium 133 L Potassium 4.4 Chloride 103 Carbon Dioxide 24 Anion Gap 6.0 BUN 19 H Creatinine 0.92 Est Cr Clr Drug Dosing 139.9 Est GFR ( Amer) 113.6 Est GFR (Non-Af Amer) 98.0 BUN/Creatinine Ratio 20.7 H Glucose 148 H Lactate Calcium 8.0 L Magnesium Ferritin Total Bilirubin AST ALT Alkaline Phosphatase Lactate Dehydrogenase Total Creatine Kinase Troponin I C-Reactive Protein NT-Pro-B Natriuret Pep Total Protein Albumin Globulin Albumin/Globulin Ratio Procalcitonin Urine Color Urine Appearance Urine pH Ur Specific [place] Urine Protein Urine Glucose (UA) Urine Ketones Urine Blood Urine Nitrite Urine Bilirubin Urine Urobilinogen Ur Leukocyte Esterase Urine WBC (Auto) Urine RBC (Auto) U Hyaline Cast (Auto) U Epithel Cells (Auto) Urine Bacteria (Auto) Ur Renal Epithelial Cell Granular Casts Urine Mucus COVID-19 Eval Order SARS-CoV-2 (PCR) Influenza Type A (PCR) Influenza Type B (PCR) RSV (RT-PCR) Blood Type Antibody Screen Medications Administered Current Inpatient Medications Acetaminophen (Acetaminophen 325 Mg Tab) 650 mg PO Q4H PRN PRN Reason: Pain or Fever Stop: 10/30/20 21:16 Al Hydrox/Mg Hydrox/Simethicone (Aluminum/Magnesium Susp 30 Ml Udc) 15 ml PO Q4H PRN PRN Reason: Dyspepsia Stop: 10/30/20 21:16 Albuterol (Albuterol Hfa 8 Gm Inhaler) 2 puffs INH Q4H PRN PRN Reason: Wheezing, shortness of breath Stop: 10/30/20 22:59 Enoxaparin Sodium (Enoxaparin 80 Mg/0.8 Ml Syr) 70 mg SQ Q12 ALE Stop: 10/30/20 22:59 Last Admin: 09/30/20 23:29 Dose: 70 mg Documented by: Fluticasone Furoate (Fluticasone Furoate 200mcg 14 Puffs/Inhaler) 1 puffs INH DAILY ALE Stop: 10/31/20 08:59 Remdesivir 100 mg/ Sodium (Chloride) 250 mls @ 250 mls/hr IV Q24H ALE; Protocol Stop: 10/04/20 20:59 Dexamethasone 6 mg/ Syringe 1.5 mls @ 1 mls/min IV QAM ALE Stop: 10/10/20 08:59 Ondansetron HCl (Ondansetron Inj 2 Mg/Ml 2 Ml Vial) 4 mg IV Q6H PRN PRN Reason: Nausea Stop: 10/30/20 21:16 Polyethylene Glycol (Polyethylene (Miralax) 17 Gm Pack) 17 gm PO DAILY PRN PRN Reason: Constipation Stop: 10/30/20 21:16 Sertraline HCl (Sertraline Hcl 100 Mg Tablet) 100 mg PO QAM ALE Stop: 10/31/20 08:59 Sertraline HCl (Sertraline Hcl 50 Mg Tablet) 25 mg PO QAM ALE Stop: 10/31/20 08:59 Sodium Chloride (Sodium Chloride 0.9% 10ml Flush) 30 ml IV Q24H ALE Stop: 10/04/20 20:01 Last Admin: 09/30/20 21:48 Dose: Not Given Documented by: Vitamin D (Cholecalciferol 1,000 Units 25 Mcg Tab) 1,000 units PO DAILY ALE Stop: 10/31/20 08:59 PG Care Time/CCT Total # of Minutes Spent Total Time Spent with Patient: Total time spent is greater than 50% in coordination of care (as documented) at patient's floor/unit and/or counseling patient: Coding Level of Care Code 57192 Subseq Hosp Care Lvl 2 Diagnoses Acute respiratory failure with hypoxia J96.01 Pneumonia due to COVID-19 virus U07.1; J12.82 Asthma J45.909 Post traumatic stress disorder F43.10 DVT prophylaxis Z29.9
[2020-10-01] MEDS: FLUTICASONE FUROATE 200MCG 14 PUFFS/INHALER INH SCH (10:47)
[2020-10-01] MEDS: ENOXAPARIN 80 MG/0.8 ML SYR SQ SCH ×2 (10:48→21:20)
[2020-10-01] MEDS: SERTRALINE HCL 50 MG TABLET PO SCH (10:49)
[2020-10-01] MEDS: CHOLECALCIFEROL 1,000 UNITS 25 MCG TAB PO SCH (10:49)
[2020-10-01] MEDS: SERTRALINE HCL 100 MG TABLET PO SCH (10:50)
[2020-10-01] MEDS: dexAMETHasone 6 MG in SYRINGE 0 ML IV SCH (10:50)
[2020-10-01] MEDS: REMDESIVIR 100 MG in SODIUM CHLORIDE 0.9% 230 ML IV SCH (20:57)
[2020-10-01] MEDS: SODIUM CHLORIDE 0.9% 10ML FLUSH IV SCH (20:58)
[2020-10-02] MEDS: dexAMETHasone 6 MG in SYRINGE 0 ML IV SCH (08:25)
[2020-10-02] MEDS: FLUTICASONE FUROATE 200MCG 14 PUFFS/INHALER INH SCH (08:26)
--- NOTE | 2020-10-02 09:32 | Hospitalist Progress Note ---
Date of Service October 02, 2020 Assessment & Plan (1) Acute respiratory failure with hypoxia: Aim O2 sats > 90%. Secondary to COVID-19 pneumonia. patient breathing comfortably on 9L oxy mask, no distress at all will give Lasix 20mg IV to see if he responds, keep lungs dry, negative fluid balance (2) Pneumonia due to COVID-19 virus: Dexamethasone 6mg IV daily for total 10 days, day 3 received plasma on 09/30 Remdesivir daily x 5 days, day 3 presented on day 5-6 of symptoms so still in the window for all treatments supportive care with supplemental oxygen, 9L oxy mask currently eating and drinking well anticipate him being here for at least a week to recover (3) Asthma: Continue Alves[place] or hospital formulary equivalent No wheezing to suggest acute exacerbation (4) Post traumatic stress disorder: Continue sertraline 125mg PO daily (5) DVT prophylaxis: Elevated d-dimer. BMI > 35. Therefore will give increased dose prophylaxis 0.5mg/kg BID. Admission and Anticipated Discharge Date Admission Date: September 30, 2020 Subjective patient is doing well, no dyspnea, no distress at all he is eating well we discussed laying prone, he said he will try later he is on 9L oxy mask, 90% Review of Systems Review of Systems: All systems reviewed & are unremarkable except as noted in Subjective Physical Exam Constitutional: well developed, cooperative, comfortable and + overweight; no acute distress Neck: trachea midline, no thyromegaly + thick neck Respiratory: normal respiratory effort; no respiratory distress and no cough Auscultation: lungs clear to auscultation bilaterally Cardiovascular: RRR, no murmur, no edema Gastrointestinal (Abdomen): normal bowel sounds, soft, nontender, no hepatosplenomegaly Musculoskeletal: no cyanosis or clubbing, extremities motor strength 5/5 Skin: no rashes, warm and dry Neurologic: patellar DTR's 2+ bilat, sensation intact and PERRL, EOMI, accommodation nl, no face palsy, no dysarthria Psychiatric: A+Ox3, euthymic affect Lymphatic: no cervical or axillary lymphadenopathy Results & Data Results & Data ([facility]) Vital Signs (Past 12 Hours) Vital Signs Temp Pulse Pulse Pulse Resp BP Pulse Ox 10/02/20 08:42 77 10/02/20 08:02 36.7 C 75 20 111/72 90 10/02/20 03:35 37.1 C 72 20 121/63 91 10/02/20 00:52 79 10/01/20 23:30 36.5 C 77 22 117/70 92 10/01/20 22:00 Pulse Ox 10/02/20 08:42 10/02/20 08:02 10/02/20 03:35 10/02/20 00:52 10/01/20 23:30 10/01/20 22:00 92 Medications Administered Current Inpatient Medications Acetaminophen (Acetaminophen 325 Mg Tab) 650 mg PO Q4H PRN PRN Reason: Pain or Fever Stop: 10/30/20 21:16 Al Hydrox/Mg Hydrox/Simethicone (Aluminum/Magnesium Susp 30 Ml Udc) 15 ml PO Q4H PRN PRN Reason: Dyspepsia Stop: 10/30/20 21:16 Albuterol (Albuterol Hfa 8 Gm Inhaler) 2 puffs INH Q4H PRN PRN Reason: Wheezing, shortness of breath Stop: 10/30/20 22:59 Enoxaparin Sodium (Enoxaparin 80 Mg/0.8 Ml Syr) 70 mg SQ Q12 ALE Stop: 10/30/20 22:59 Last Admin: 10/01/20 21:20 Dose: 70 mg Documented by: Fluticasone Furoate (Fluticasone Furoate 200mcg 14 Puffs/Inhaler) 1 puffs INH DAILY [facility] Stop: 10/31/20 08:59 Last Admin: 10/02/20 08:26 Dose: 1 puffs Documented by: Remdesivir 100 mg/ Sodium (Chloride) 250 mls @ 250 mls/hr IV Q24H [facility]; Protocol Stop: 10/04/20 20:59 Last Infusion: 10/01/20 21:57 Dose: Infused Documented by: Dexamethasone 6 mg/ Syringe 1.5 mls @ 1 mls/min IV QAM [facility] Stop: 10/10/20 08:59 Last Admin: 10/02/20 08:25 Dose: 1 mls/min Documented by: Ondansetron HCl (Ondansetron Inj 2 Mg/Ml 2 Ml Vial) 4 mg IV Q6H PRN PRN Reason: Nausea Stop: 10/30/20 21:16 Polyethylene Glycol (Polyethylene (Miralax) 17 Gm Pack) 17 gm PO DAILY PRN PRN Reason: Constipation Stop: 10/30/20 21:16 Sertraline HCl (Sertraline Hcl 100 Mg Tablet) 100 mg PO QAM [facility] Stop: 10/31/20 08:59 Last Admin: 10/01/20 10:50 Dose: 100 mg Documented by: Sertraline HCl (Sertraline Hcl 50 Mg Tablet) 25 mg PO QAM [facility] Stop: 10/31/20 08:59 Last Admin: 10/01/20 10:49 Dose: 25 mg Documented by: Sodium Chloride (Sodium Chloride 0.9% 10ml Flush) 30 ml IV Q24H [facility] Stop: 10/04/20 20:01 Last Admin: 10/01/20 20:58 Dose: 30 ml Documented by: Vitamin D (Cholecalciferol 1,000 Units 25 Mcg Tab) 1,000 units PO DAILY [facility] Stop: 10/31/20 08:59 Last Admin: 10/01/20 10:49 Dose: 1,000 units Documented by: PG Care Time/CCT Total # of Minutes Spent Total Time Spent with Patient: Total time spent is greater than 50% in coordination of care (as documented) at patient's floor/unit and/or counseling patient: Coding Level of Care Code 61261 Subseq Hosp Care Lvl 2 Diagnoses Acute respiratory failure with hypoxia J96.01 Pneumonia due to COVID-19 virus U07.1; J12.82 Asthma J45.909 Post traumatic stress disorder F43.10 DVT prophylaxis Z29.9
[2020-10-02] MEDS ORDERED: FUROSEMIDE 20 MG in SYRINGE 0 ML IV ONE (09:41)
[2020-10-02] MEDS ORDERED: FUROSEMIDE 40 MG/4 ML VIAL IV STA (09:43)
[2020-10-02] MEDS: ENOXAPARIN 80 MG/0.8 ML SYR SQ SCH ×2 (10:02→20:51)
[2020-10-02] MEDS: SERTRALINE HCL 50 MG TABLET PO SCH (10:02)
[2020-10-02] MEDS: CHOLECALCIFEROL 1,000 UNITS 25 MCG TAB PO SCH (10:02)
[2020-10-02] MEDS: SERTRALINE HCL 100 MG TABLET PO SCH (10:02)
[2020-10-02] MEDS: REMDESIVIR 100 MG in SODIUM CHLORIDE 0.9% 230 ML IV SCH (20:51)
[2020-10-02] MEDS: SODIUM CHLORIDE 0.9% 10ML FLUSH IV SCH (20:52)
[2020-10-03 06:22] LABS: Hematocrit (blood only) 38.7 % (42-52); Hemoglobin 13.1 g/dL (14.0-18.0); Mean Corpuscular Hemoglobin 29.3 pg (25-34); Mean Corpuscular Hgb Conc 33.9 g/dL (32-36); Mean Corpuscular Volume 86.6 fL (80-100); Mean Platelet Volume 10.1 fL (7.4-10.4); Platelet Count 346 K/uL (130-400); RDW Standard Deviation 41.5 fL (36.4-46.3); Red Blood Count 4.47 M/uL (4.7-6.1)
[2020-10-03 06:56] LABS: BUN Creatinine Ratio 24.5 (10-20); Calcium 8.7 mg/dl (8.5-10.1); Creatinine Clr Calc Pharmacy 141.5 ml/min; Est GFR (African American) 115.1; Est GFR (Non-African American) 99.3; Potassium 4.3 mmol/L (3.5-5.1)
[2020-10-03] MEDS: ENOXAPARIN 80 MG/0.8 ML SYR SQ SCH ×2 (09:26→19:36)
[2020-10-03] MEDS: FLUTICASONE FUROATE 200MCG 14 PUFFS/INHALER INH SCH (09:26)
[2020-10-03] MEDS: SERTRALINE HCL 50 MG TABLET PO SCH (09:27)
[2020-10-03] MEDS: CHOLECALCIFEROL 1,000 UNITS 25 MCG TAB PO SCH (09:27)
[2020-10-03] MEDS: SERTRALINE HCL 100 MG TABLET PO SCH (09:27)
[2020-10-03] MEDS: dexAMETHasone 6 MG in SYRINGE 0 ML IV SCH (09:28)
--- NOTE | 2020-10-03 16:44 | Hospitalist Progress Note ---
Date of Service October 03, 2020 Assessment & Plan (1) Acute respiratory failure with hypoxia: Aim O2 sats > 90%. Secondary to COVID-19 pneumonia. patient breathing comfortably on 9L oxy mask, no distress at all encouraged him to sit up in a chair he is compliant with self proning during the day (2) Pneumonia due to COVID-19 virus: Dexamethasone 6mg IV daily for total 10 days, day 4 received plasma on 09/30 Remdesivir daily x 5 days, day 4 presented on day 5-6 of symptoms so still in the window for all treatments supportive care with supplemental oxygen, still on 9L oxy mask eating and drinking well anticipate him being here until mid week next week (3) Asthma: Continue [place]ves[place] or hospital formulary equivalent No wheezing to suggest acute exacerbation (4) Post traumatic stress disorder: Continue sertraline 125mg PO daily (5) DVT prophylaxis: Elevated d-dimer. BMI > 35. Therefore will give increased dose prophylaxis 0.5mg/kg BID. Admission and Anticipated Discharge Date Admission Date: September 30, 2020 Subjective patient doing a little better, down to 9L he is walking to the bathroom, had a small BM today, he is making urine continues to eat well he says he wish he would get better faster, he is frustrated encouraged him to sit in a chair BID, use incentive spirometer, he says he will comply labs are stable, WBC is 15k due to dexamethasone Review of Systems Review of Systems: All systems reviewed & are unremarkable except as noted in Subjective Physical Exam Constitutional: well developed, cooperative, comfortable and + overweight; no acute distress Neck: trachea midline, no thyromegaly + thick neck Respiratory: normal respiratory effort; no respiratory distress and no cough Auscultation: lungs clear to auscultation bilaterally Cardiovascular: RRR, no murmur, no edema Gastrointestinal (Abdomen): normal bowel sounds, soft, nontender, no hepatosplenomegaly Musculoskeletal: no cyanosis or clubbing, extremities motor strength 5/5 Skin: no rashes, warm and dry Neurologic: patellar DTR's 2+ bilat, sensation intact and PERRL, EOMI, accommodation nl, no face palsy, no dysarthria Psychiatric: A+Ox3, euthymic affect Lymphatic: no cervical or axillary lymphadenopathy Results & Data Results & Data ([facility]) Vital Signs (Past 12 Hours) Vital Signs Temp Pulse Pulse Pulse Resp BP BP 10/03/20 16:11 37.1 C 94 H 20 128/82 10/03/20 15:06 92 H 10/03/20 12:03 36.5 C 93 H 20 124/74 10/03/20 11:33 68 10/03/20 10:16 10/03/20 07:26 37.3 C 88 20 114/77 Pulse Ox Pulse Ox 10/03/20 16:11 97 10/03/20 15:06 10/03/20 12:03 91 10/03/20 11:33 10/03/20 10:16 97 10/03/20 07:26 89 L Laboratory Results Laboratory Results - last 24 hr 10/03/20 10/03/20 05:21 05:21 WBC 15.70 H RBC 4.47 L Hgb 13.1 L Hct 38.7 L MCV 86.6 MCH 29.3 MCHC 33.9 RDW Std Deviation 41.5 RDW Coeff of Anamaria 13.0 Plt Count 346 MPV 10.1 Sodium 137 Potassium 4.3 Chloride 106 Carbon Dioxide 24 Anion Gap 7.0 BUN 22 H Creatinine 0.91 Est Cr Clr Drug Dosing 141.5 Est GFR ( Amer) 115.1 Est GFR (Non-Af Amer) 99.3 BUN/Creatinine Ratio 24.5 H Glucose 106 H Calcium 8.7 Medications Administered Current Inpatient Medications Acetaminophen (Acetaminophen 325 Mg Tab) 650 mg PO Q4H PRN PRN Reason: Pain or Fever Stop: 10/30/20 21:16 Al Hydrox/Mg Hydrox/Simethicone (Aluminum/Magnesium Susp 30 Ml Udc) 15 ml PO Q4H PRN PRN Reason: Dyspepsia Stop: 10/30/20 21:16 Albuterol (Albuterol Hfa 8 Gm Inhaler) 2 puffs INH Q4H PRN PRN Reason: Wheezing, shortness of breath Stop: 10/30/20 22:59 Enoxaparin Sodium (Enoxaparin 80 Mg/0.8 Ml Syr) 70 mg SQ Q12 [facility] Stop: 10/30/20 22:59 Last Admin: 10/03/20 09:26 Dose: 70 mg Documented by: Fluticasone Furoate (Fluticasone Furoate 200mcg 14 Puffs/Inhaler) 1 puffs INH DAILY [facility] Stop: 10/31/20 08:59 Last Admin: 10/03/20 09:26 Dose: 1 puffs Documented by: Remdesivir 100 mg/ Sodium (Chloride) 250 mls @ 250 mls/hr IV Q24H [facility]; Protocol Stop: 10/04/20 20:59 Last Infusion: 10/02/20 21:52 Dose: Infused Documented by: Dexamethasone 6 mg/ Syringe 1.5 mls @ 1 mls/min IV QAM [facility] Stop: 10/10/20 08:59 Last Admin: 10/03/20 09:28 Dose: 1 mls/min Documented by: Ondansetron HCl (Ondansetron Inj 2 Mg/Ml 2 Ml Vial) 4 mg IV Q6H PRN PRN Reason: Nausea Stop: 10/30/20 21:16 Polyethylene Glycol (Polyethylene (Miralax) 17 Gm Pack) 17 gm PO DAILY PRN PRN Reason: Constipation Stop: 10/30/20 21:16 Sertraline HCl (S[facility]ine Hcl 100 Mg Tablet) [facility] [place]: 10/31/20 08:59 Last Admin: 10/03/20 09:27 Dose: 100 mg Documented by: Sertraline HCl (Sertraline Hcl 50 Mg Tablet) 25 mg PO QAM [facility] Stop: 10/31/20 08:59 Last Admin: 10/03/20 09:27 Dose: 25 mg Documented by: Sodium Chloride (Sodium Chloride 0.9% 10ml Flush) 30 ml IV Q24H [facility] Stop: 10/04/20 20:01 Last Admin: 10/02/20 20:52 Dose: 30 ml Documented by: Vitamin D (Cholecalciferol 1,000 Units 25 Mcg Tab) 1,000 units PO DAILY [facility] Stop: 10/31/20 08:59 Last Admin: 10/03/20 09:27 Dose: 1,000 units Documented by: PG Care Time/CCT Total # of Minutes Spent Total Time Spent with Patient: Total time spent is greater than 50% in coordination of care (as documented) at patient's floor/unit and/or counseling patient: Coding Level of Care Code 24210 Subseq Hosp Care Lvl 2 Diagnoses Acute respiratory failure with hypoxia J96.01 Pneumonia due to COVID-19 virus U07.1; J12.82 Asthma J45.909 Post traumatic stress disorder F43.10 DVT prophylaxis Z29.9
[2020-10-03] MEDS: REMDESIVIR 100 MG in SODIUM CHLORIDE 0.9% 230 ML IV SCH (19:35)
[2020-10-03] MEDS: SODIUM CHLORIDE 0.9% 10ML FLUSH IV SCH (21:08)
[2020-10-04] MEDS: dexAMETHasone 6 MG in SYRINGE 0 ML IV SCH (08:30)
[2020-10-04] MEDS: SERTRALINE HCL 50 MG TABLET PO SCH (08:31)
[2020-10-04] MEDS: SERTRALINE HCL 100 MG TABLET PO SCH (08:31)
[2020-10-04] MEDS: ENOXAPARIN 80 MG/0.8 ML SYR SQ SCH ×2 (08:31→20:07)
[2020-10-04] MEDS: CHOLECALCIFEROL 1,000 UNITS 25 MCG TAB PO SCH (08:31)
[2020-10-04] MEDS: FLUTICASONE FUROATE 200MCG 14 PUFFS/INHALER INH SCH (08:32)
--- NOTE | 2020-10-04 10:06 | Hospitalist Progress Note ---
Date of Service October 04, 2020 Assessment & Plan (1) Acute respiratory failure with hypoxia: Aim O2 sats > 90%. Secondary to COVID-19 pneumonia. patient breathing comfortably on 9L oxy mask, no distress at all encouraged him to sit up in a chair he is compliant with self proning during the day (2) Pneumonia due to COVID-19 virus: Dexamethasone 6mg IV daily for total 10 days, day 5 change to PO received plasma on 09/30 Remdesivir daily x 5 days, day 5 on 10/04 presented on day 5-6 of symptoms so still in the window for all treatments supportive care with supplemental oxygen, still on 9L oxy mask get OOB to chair BID, lay prone eating and drinking well anticipate him being here until mid week next week (3) Asthma: Continue [place]ves[place] or hospital formulary equivalent No wheezing to suggest acute exacerbation (4) Post traumatic stress disorder: Continue sertraline 125mg PO daily (5) DVT prophylaxis: Elevated d-dimer. BMI > 35. Therefore will give increased dose prophylaxis 0.5mg/kg BID. Admission and Anticipated Discharge Date Admission Date: September 30, 2020 Subjective patient continues to feel fine, no distress at all, sleeping, laying prone intermittently will get OOB in chair BID eating well, moving his bowels, making urine, he has negative fluid balance documented so no need for diuresis no labs today as they were stable yesterday still on 9L, should start to improve soon Review of Systems Review of Systems: All systems reviewed & are unremarkable except as noted in Subjective Physical Exam Constitutional: well developed, cooperative, comfortable and + overweight; no acute distress Neck: trachea midline, no thyromegaly + thick neck Respiratory: normal respiratory effort; no respiratory distress and no cough Auscultation: lungs clear to auscultation bilaterally Cardiovascular: RRR, no murmur, no edema Gastrointestinal (Abdomen): normal bowel sounds, soft, nontender, no hepatosplenomegaly Musculoskeletal: no cyanosis or clubbing, extremities motor strength 5/5 Skin: no rashes, warm and dry Neurologic: patellar DTR's 2+ bilat, sensation intact and PERRL, EOMI, accommodation nl, no face palsy, no dysarthria Psychiatric: A+Ox3, euthymic affect Lymphatic: no cervical or axillary lymphadenopathy Results & Data Results & Data ([facility]) Vital Signs (Past 12 Hours) Vital Signs Temp Pulse Pulse Resp BP BP Pulse Ox 10/04/20 07:46 37.1 C 85 19 129/86 92 10/04/20 03:52 37.1 C 75 20 120/80 94 10/03/20 23:28 37.3 C 73 20 119/80 93 Medications Administered Current Inpatient Medications Acetaminophen (Acetaminophen 325 Mg Tab) 650 mg PO Q4H PRN PRN Reason: Pain or Fever Stop: 10/30/20 21:16 Al Hydrox/Mg Hydrox/Simethicone (Aluminum/Magnesium Susp 30 Ml Udc) 15 ml PO Q4H PRN PRN Reason: Dyspepsia Stop: 10/30/20 21:16 Albuterol (Albuterol Hfa 8 Gm Inhaler) 2 puffs INH Q4H PRN PRN Reason: Wheezing, shortness of breath Stop: 10/30/20 22:59 Enoxaparin Sodium (Enoxaparin 80 Mg/0.8 Ml Syr) 70 mg SQ Q12 [facility] Stop: 10/30/20 22:59 Last Admin: 10/04/20 08:31 Dose: 70 mg Documented by: Fluticasone Furoate (Fluticasone Furoate 200mcg 14 Puffs/Inhaler) 1 puffs INH DAILY [facility] Stop: 10/31/20 08:59 Last Admin: 10/04/20 08:32 Dose: 1 puffs Documented by: Remdesivir 100 mg/ Sodium (Chloride) 250 mls @ 250 mls/hr IV Q24H [facility]; Protocol Stop: 10/04/20 20:59 Last Infusion: 10/03/20 21:08 Dose: Infused Documented by: Dexamethasone 6 mg/ Syringe 1.5 mls @ 1 mls/min IV QAM [facility] Stop: 10/10/20 08:59 Last Admin: 10/04/20 08:30 Dose: 1 mls/min Documented by: Ondansetron HCl (Ondansetron Inj 2 Mg/Ml 2 Ml Vial) 4 mg IV Q6H PRN PRN Reason: Nausea Stop: 10/30/20 21:16 Polyethylene Glycol (Polyethylene (Miralax) 17 Gm Pack) 17 gm PO DAILY PRN PRN Reason: Constipation Stop: 10/30/20 21:16 Sertraline HCl (Sertraline Hcl 100 Mg Tablet) 100 mg PO QAM [facility] Stop: 10/31/20 08:59 Last Admin: 10/04/20 08:31 Dose: 100 mg Documented by: Sertraline HCl (Sertraline Hcl 50 Mg Tablet) 25 mg PO QAM [facility] Stop: 10/31/20 08:59 Last Admin: 10/04/20 08:31 Dose: 25 mg Documented by: Sodium Chloride (Sodium Chloride 0.9% 10ml Flush) 30 ml IV Q24H [facility] Stop: 10/04/20 20:01 Last Admin: 10/03/20 21:08 Dose: 30 ml Documented by: Vitamin D (Cholecalciferol 1,000 Units 25 Mcg Tab) 1,000 units PO DAILY [facility] Stop: 10/31/20 08:59 Last Admin: 10/04/20 08:31 Dose: 1,000 units Documented by: PG Care Time/CCT Total # of Minutes Spent Total Time Spent with Patient: Total time spent is greater than 50% in coordination of care (as documented) at patient's floor/unit and/or counseling patient: Coding Level of Care Code 43897 Subseq Hosp Care Lvl 2 Diagnoses Acute respiratory failure with hypoxia J96.01 Pneumonia due to COVID-19 virus U07.1; J12.82 Asthma J45.909 Post traumatic stress disorder F43.10 DVT prophylaxis Z29.9
[2020-10-04] MEDS: REMDESIVIR 100 MG in SODIUM CHLORIDE 0.9% 230 ML IV SCH (20:07)
[2020-10-04] MEDS: SODIUM CHLORIDE 0.9% 10ML FLUSH IV SCH (21:16)
[2020-10-05] MEDS: FLUTICASONE FUROATE 200MCG 14 PUFFS/INHALER INH SCH (08:01)
[2020-10-05] MEDS: SERTRALINE HCL 100 MG TABLET PO SCH (08:02)
[2020-10-05] MEDS: SERTRALINE HCL 50 MG TABLET PO SCH (08:02)
[2020-10-05] MEDS: dexAMETHasone 4 MG TAB PO SCH (08:02)
[2020-10-05] MEDS: CHOLECALCIFEROL 1,000 UNITS 25 MCG TAB PO SCH (08:02)
[2020-10-05] MEDS: ENOXAPARIN 80 MG/0.8 ML SYR SQ SCH ×2 (08:03→20:18)
[2020-10-05 08:42] LABS: BUN Creatinine Ratio 20.9 (10-20); Calcium 9.4 mg/dl (8.5-10.1); Creatinine Clr Calc Pharmacy 129.5 ml/min; Est GFR (African American) 106.6; Est GFR (Non-African American) 91.9; Potassium 4.7 mmol/L (3.5-5.1)
--- NOTE | 2020-10-05 09:08 | Hospitalist Progress Note ---
Date of Service October 05, 2020 Assessment & Plan (1) Acute respiratory failure with hypoxia: Aim O2 sats > 90%. Secondary to COVID-19 pneumonia. patient breathing comfortably on 4-6L oxy mask encouraged him to sit up in a chair he is compliant with self proning during the day use flutter valve q4 to help cough up mucous (2) Pneumonia due to COVID-19 virus: Dexamethasone 6mg PO daily for total 10 days, day 6 today received plasma on 09/30 Remdesivir daily x 5 days, day 5 on 10/04 presented on day 5-6 of symptoms so still in the window for all treatments supportive care with supplemental oxygen, improving, down to 4-6L today get OOB to chair BID, lay prone eating and drinking well anticipate him being here 2 more days to get down to room air (3) Asthma: Continue [place]ves[place] or hospital formulary equivalent No wheezing to suggest acute exacerbation (4) Post traumatic stress disorder: Continue sertraline 125mg PO daily (5) DVT prophylaxis: Elevated d-dimer. BMI > 35. Therefore will give increased dose prophylaxis 0.5mg/kg BID. Admission and Anticipated Discharge Date Admission Date: September 30, 2020 Subjective patient doing well today, down to 6L oxy mask, I dropped him to 4L oxy mask and he is 90-92% will downgrade to medical floor eating well, making urine, moving his bowels he is hopeful to get out of the hospital soon, told him it is likely 1-2 days if he comes off oxygen Review of Systems Review of Systems: All systems reviewed & are unremarkable except as noted in Subjective Physical Exam Constitutional: well developed, cooperative, comfortable and + overweight; no acute distress Neck: trachea midline, no thyromegaly + thick neck Respiratory: normal respiratory effort; no respiratory distress and no cough Auscultation: lungs clear to auscultation bilaterally Cardiovascular: RRR, no murmur, no edema Gastrointestinal (Abdomen): normal bowel sounds, soft, nontender, no hepatosplenomegaly Musculoskeletal: no cyanosis or clubbing, extremities motor strength 5/5 Skin: no rashes, warm and dry Neurologic: patellar DTR's 2+ bilat, sensation intact and PERRL, EOMI, accommodation nl, no face palsy, no dysarthria Psychiatric: A+Ox3, euthymic affect Lymphatic: no cervical or axillary lymphadenopathy Results & Data Results & Data ([facility]) Vital Signs (Past 12 Hours) Vital Signs Temp Pulse Pulse Resp BP Pulse Ox 10/05/20 07:32 37.1 C 84 20 110/74 98 10/05/20 03:30 36.7 C 77 20 125/78 94 10/05/20 00:22 79 10/04/20 23:14 36.7 C 80 18 95/54 L 95 Laboratory Results Laboratory Results - last 24 hr 10/05/20 07:44 Sodium 138 Potassium 4.7 Chloride 103 Carbon Dioxide 31 Anion Gap 3.0 BUN 20 H Creatinine 0.97 Est Cr Clr Drug Dosing 129.5 Est GFR ( Amer) 106.6 Est GFR (Non-Af Amer) 91.9 BUN/Creatinine Ratio 20.9 H Glucose 100 H Calcium 9.4 Medications Administered Current Inpatient Medications Acetaminophen (Acetaminophen 325 Mg Tab) 650 mg PO Q4H PRN PRN Reason: Pain or Fever Stop: 10/30/20 21:16 Al Hydrox/Mg Hydrox/Simethicone (Aluminum/Magnesium Susp 30 Ml Udc) 15 ml PO Q4H PRN PRN Reason: Dyspepsia Stop: 10/30/20 21:16 Albuterol (Albuterol Hfa 8 Gm Inhaler) 2 puffs INH Q4H PRN PRN Reason: Wheezing, shortness of breath Stop: 10/30/20 22:59 Dexamethasone (Dexamethasone 4 Mg Tab) 6 mg PO QAM [facility] Stop: 10/09/20 09:01 Last Admin: 10/05/20 08:02 Dose: 6 mg Documented by: Enoxaparin Sodium (Enoxaparin 80 Mg/0.8 Ml Syr) 70 mg SQ Q12 [facility] Stop: 10/30/20 22:59 Last Admin: 10/05/20 08:03 Dose: 70 mg Documented by: Fluticasone Furoate (Fluticasone Furoate 200mcg 14 Puffs/Inhaler) 1 puffs INH DAILY [facility] Stop: 10/31/20 08:59 Last Admin: 10/05/20 08:01 Dose: 1 puffs Documented by: Ondansetron HCl (Ondansetron Inj 2 Mg/Ml 2 Ml Vial) 4 mg IV Q6H PRN PRN Reason: Nausea Stop: 10/30/20 21:16 Polyethylene Glycol (Polyethylene (Miralax) 17 Gm Pack) 17 gm PO DAILY PRN PRN Reason: Constipation Stop: 10/30/20 21:16 Sertraline HCl (Sertraline Hcl 100 Mg Tablet) 100 mg PO QAM [facility] Stop: 10/31/20 08:59 Last Admin: 10/05/20 08:02 Dose: 100 mg Documented by: Sertraline HCl (Sertraline Hcl 50 Mg Tablet) 25 mg PO QAM [facility] Stop: 10/31/20 08:59 Last Admin: 10/05/20 08:02 Dose: 25 mg Documented by: Vitamin D (Cholecalciferol 1,000 Units 25 Mcg Tab) 1,000 units PO DAILY [facility] Stop: 10/31/20 08:59 Last Admin: 10/05/20 08:02 Dose: 1,000 units Documented by: PG Care Time/CCT Total # of Minutes Spent Total Time Spent with Patient: Total time spent is greater than 50% in c oordination of care (as documented) at patient's floor/unit and/or counseling patient: Coding Level of Care Code 21959 Subseq Hosp Care Lvl 2 Diagnoses Acute respiratory failure with hypoxia J96.01 Pneumonia due to COVID-19 virus U07.1; J12.82 Asthma J45.909 Post traumatic stress disorder F43.10 DVT prophylaxis Z29.9
[2020-10-06] MEDS: CHOLECALCIFEROL 1,000 UNITS 25 MCG TAB PO SCH (08:17)
[2020-10-06] MEDS: SERTRALINE HCL 50 MG TABLET PO SCH (08:17)
[2020-10-06] MEDS: ENOXAPARIN 80 MG/0.8 ML SYR SQ SCH ×2 (08:17→22:11)
[2020-10-06] MEDS: dexAMETHasone 4 MG TAB PO SCH (08:18)
[2020-10-06] MEDS: SERTRALINE HCL 100 MG TABLET PO SCH (08:18)
[2020-10-06] MEDS: FLUTICASONE FUROATE 200MCG 14 PUFFS/INHALER INH SCH (08:18)
--- NOTE | 2020-10-06 19:13 | Hospitalist Progress Note ---
Date of Service October 06, 2020 Assessment & Plan (1) Acute respiratory failure with hypoxia: Secondary to COVID-19 pneumonia in setting of asthma. IMPROVING. Self-prone, flutter valve/pulm toilet. Cont dexamethasone 6mg daily; day #7 of 10 today. Cont to wean O2 as tolerated. Of note - completed convalescent plasma on 09/30/20. Completed 5-day course of remdesivir. (2) Pneumonia due to COVID-19 virus: Dexamethasone 6mg PO daily for total 10 days, day 7 today. Received convalescent plasma on 09/30/20. Completed 5-day course of Remdesivir; final dose was 10/04/20. Overall improved. (3) Asthma: Continue [place]ves[place] or hospital formulary equivalent No wheezing per prior MD If any active asthma component, however, he remains on dexamethasone (4) Post traumatic stress disorder: Continue sertraline 125mg PO daily (5) Hyperglycemia: Most likely patient has T2DM. Check a1c am. Add lantus 10 units HS. Add novolog. Change regular diet to T2DM diet. Likely cause of polyuria. (6) DVT prophylaxis: Cont higher-does lovenox for DVT proph - 70mg BID progressing Admission and Anticipated Discharge Date Admission Date: September 30, 2020 Subjective patient without complaints during the visit. mild cough and LANDAVERDE but no dyspnea at rest. feels better overall. apparently had told staff that he was "peeing all the time." random BSG obtained late in the day -- was well over 200. Review of Systems Constitutional: no fever, no chills, no fatigue and no anorexia Respiratory: + cough, + dyspnea on exertion and + wheezing Cardiovascular: no chest pain Gastrointestinal: no abdominal pain, no vomiting and no diarrhea/loose stools Physical Exam Constitutional: + obese; no acute distress and no altered mental status ENMT: external ear and nose normal, oropharynx normal Respiratory: no respiratory distress Auscultation: + diminished lung sounds; no crackles and no wheezes Cardiovascular: RRR, no murmur, no edema Heart Sounds: normal S1 and normal S2 Vessels: posterior tibial pulses present and dorsalis pedis pulses presen t; no JVD Gastrointestinal (Abdomen): normal bowel sounds, soft, nontender, no hepatosplenomegaly Psychiatric: A+Ox3, euthymic affect Results & Data Results & Data ([facility]) Vital Signs (Past 12 Hours) Vital Signs Temp Pulse Resp BP Pulse Ox 10/06/20 15:28 36.6 C 76 18 119/70 96 10/06/20 07:46 36.4 C L 78 19 129/85 95 PG Care Time/CCT Total # of Minutes Spent Total Time Spent with Patient: Total time spent is greater than 50% in coordination of care (as documented) at patient's floor/unit and/or counseling patient: Coding Level of Care Code 14067 Subseq Hosp Care Lvl 2 Diagnoses Acute respiratory failure with hypoxia J96.01 Pneumonia due to COVID-19 virus U07.1; J12.82 Asthma J45.909 Post traumatic stress disorder F43.10 Hyperglycemia R73.9 DVT prophylaxis Z29.9
[2020-10-06] MEDS ORDERED: GLUCOSE 10 TABS/TUBE PO PRN (19:55)
[2020-10-06] MEDS ORDERED: DEXTROSE 50% 50 ML SYRINGE IV PRN (19:55)
[2020-10-06] MEDS ORDERED: GLUCOSE 40% GEL 15 GM TUBE PO PRN (19:55)
[2020-10-06] MEDS ORDERED: GLUCAGON FOR INJ 1 MG VIAL SQ PRN (19:55)
[2020-10-06] MEDS ORDERED: CARBOHYDRATES FOR HYPOGLYCEMIA PO PRN (19:55)
[2020-10-06] MEDS ORDERED: INSULIN GLARGINE SOLOSTAR 100 UNITS/ML 3 ML PEN SC SCH (21:00)
[2020-10-06] MEDS ORDERED: INSULIN ASPART 100 UNITS/ML 3 ML PEN SC SCH (21:00)
[2020-10-06] MEDS: INSULIN ASPART 100 UNITS/ML 3 ML PEN SC SCH (22:12)
[2020-10-07] MEDS ORDERED: INSULIN ASPART 100 UNITS/ML 3 ML PEN SC ONE
[2020-10-07 06:58] LABS: D Dimer 1380 ug/L FEU (0-500)
[2020-10-07 07:16] LABS: Hematocrit (blood only) 46.2 % (42-52); Hemoglobin 15.8 g/dL (14.0-18.0); Mean Corpuscular Hemoglobin 29.7 pg (25-34); Mean Corpuscular Hgb Conc 34.2 g/dL (32-36); Mean Corpuscular Volume 86.8 fL (80-100); Mean Platelet Volume 9.2 fL (7.4-10.4); Platelet Count 433 K/uL (130-400); RDW Coefficient of Variation 12.9 % (11.5-14.5); Red Blood Count 5.32 M/uL (4.7-6.1); White Blood Count 17.74 K/uL (4.8-10.8)
[2020-10-07 07:28] LABS: BUN Creatinine Ratio 21.7 (10-20); Calcium 9.1 mg/dl (8.5-10.1); Creatinine Clr Calc Pharmacy 114.5 ml/min; Est GFR (African American) 91.5; Potassium 4.8 mmol/L (3.5-5.1)
[2020-10-07] MEDS: ENOXAPARIN 80 MG/0.8 ML SYR SQ SCH ×2 (07:51→21:03)
[2020-10-07] MEDS: dexAMETHasone 4 MG TAB PO SCH (07:52)
[2020-10-07] MEDS: FLUTICASONE FUROATE 200MCG 14 PUFFS/INHALER INH SCH (07:52)
[2020-10-07] MEDS: CHOLECALCIFEROL 1,000 UNITS 25 MCG TAB PO SCH (07:52)
[2020-10-07] MEDS: SERTRALINE HCL 100 MG TABLET PO SCH (07:52)
[2020-10-07] MEDS: SERTRALINE HCL 50 MG TABLET PO SCH (07:52)
[2020-10-07 08:05] LABS: Estimated Average Glucose 163 mg/dl; Hemoglobin A1C 7.3 % (4.5-5.6)
[2020-10-07] MEDS: INSULIN ASPART 100 UNITS/ML 3 ML PEN SC SCH ×4 (08:52→21:11)
[2020-10-07] MEDS ORDERED: INSULIN GLARGINE SOLOSTAR 100 UNITS/ML 3 ML PEN SC SCH (21:00)
--- NOTE | 2020-10-07 21:08 | Hospitalist Progress Note ---
Date of Service October 07, 2020 Assessment & Plan (1) Acute respiratory failure with hypoxia: Resolving. weaning O2. Secondary to COVID-19 pneumonia. he is compliant with self proning during the day. cont flutter/pulmonary toilet. (2) Pneumonia due to COVID-19 virus: IMPROVING. Dexamethasone 6mg PO daily for total 10 days, day 8 today received plasma on 09/30/20 completed Remdesivir daily x 5 days, day 5 was on 10/04/20 2-step in am cont to wean O2 (3) Asthma: Continue [place]ves[place] or hospital formulary equivalent No wheezing to suggest acute exacerbation [id number] is on steroids for COVID, day #8 (4) Post traumatic stress disorder: Continue sertraline 125mg PO daily (5) Diabetes mellitus type 2, uncontrolled: new Dx a1c 7.3% metformin 500 BID at d/c while here -- lantus/novolog due to steroids DM education consult nutrition consult diet - DM diet bsgs ac/hs (6) Obesity (BMI 30-39.9): BMI 38.9 (7) Hyponatremia: mildly low at admission continues to be mildly low SIADH 2nd SSRI?? trend (8) DVT prophylaxis: cont lovenox 70mg BID hopefully d/c to [facility] tomorrow needs 2-step Admission and Anticipated Discharge Date Admission Date: September 30, 2020 Subjective patient without NEW complaints during visit mild cough mild LANDAVERDE but eating well feels better told him about new dx of T2DM +family h/o DM Review of Systems Constitutional: no fever, no chills, no fatigue and no anorexia Respiratory: no hemoptysis and no wheezing Cardiovascular: no chest pain Gastrointestinal: no abdominal pain, no vomiting and no diarrhea/loose stools Physical Exam Constitutional: + obese; no acute distress and no altered mental status ENMT: external ear and nose normal, oropharynx normal Respiratory: no respiratory distress Auscultation: + diminished lung sounds; no crackles and no wheezes Cardiovascular: RRR, no murmur, no edema Heart Sounds: normal S1 and normal S2 Vessels: posterior tibial pulses present and dorsalis pedis pulses present; no JVD Gastrointestinal (Abdomen): normal bowel sounds, soft, nontender, no hepatosplenomegaly Psychiatric: A+Ox3, euthymic affect Results & Data Results & Data ([place]) Vital Signs (Past 12 Hours) Vital Signs Temp Pulse Resp BP Pulse Ox 10/07/20 15:45 36.8 C 89 18 136/76 93 Laboratory Results Laboratory Results - last 24 hr 10/06/20 10/06/20 10/07/20 21:34 23:37 06:26 WBC 17.74 H RBC 5.32 Hgb 15.8 Hct 46.2 MCV 86.8 MCH 29.7 MCHC 34.2 RDW Std Deviation 41.0 RDW Coeff of Anamaria 12.9 Plt Count 433 H MPV 9.2 D-Dimer Sodium Potassium Chloride Carbon Dioxide Anion Gap BUN Creatinine Est Cr Clr Drug Dosing Est GFR ( Amer) Est GFR (Non-Af Amer) BUN/Creatinine Ratio Glucose POC Glucose 321 H* 269 H Estimat Average Glucose Hemoglobin A1c Calcium AST ALT 10/07/20 10/07/20 10/07/20 06:26 06:26 06:26 WBC RBC Hgb Hct MCV MCH MCHC RDW Std Deviation RDW Coeff of Anamaria Plt Count MPV D-Dimer 1380 H* Sodium 133 L Potassium 4.8 Chloride 101 Carbon Dioxide 29 Anion Gap 3.0 BUN 24 H Creatinine 1.10 Est Cr Clr Drug Dosing 114.5 Est GFR ( Amer) 91.5 Est GFR (Non-Af Amer) 79.0 BUN/Creatinine Ratio 21.7 H Glucose 149 H POC Glucose Estimat Average Glucose 163 Hemoglobin A1c 7.3 H Calcium 9.1 AST 12 L ALT 57 10/07/20 10/07/20 10/07/20 08:05 12:03 17:04 WBC RBC Hgb Hct MCV MCH MCHC RDW Std Deviation RDW Coeff of Anamaria Plt Count MPV D-Dimer Sodium Potassium Chloride Carbon Dioxide Anion Gap BUN Creatinine Est Cr Clr Drug Dosing Est GFR ( Amer) Est GFR (Non-Af Amer) BUN/Creatinine Ratio Glucose POC Glucose 119 H 212 H 301 H* Estimat Average Glucose Hemoglobin A1c Calcium AST ALT 10/07/20 10/07/20 17:05 20:46 WBC RBC Hgb Hct MCV MCH MCHC RDW Std Deviation RDW Coeff of Anamaria Plt Count MPV D-Dimer Sodium Potassium Chloride Carbon Dioxide Anion Gap BUN Creatinine Est Cr Clr Drug Dosing Est GFR ( Amer) Est GFR (Non-Af Amer) BUN/Creatinine Ratio Glucose POC Glucose 286 H 238 H Estimat Average Glucose Hemoglobin A1c Calcium AST ALT PG Care Time/CCT Total # of Minutes Spent Total Time Spent with Patient: Total time spent is greater than 50% in coordination of care (as documented) at patient's floor/unit and/or counseling patient: Coding Level of Care Code 38942 Subseq Hosp Care Lvl 3 Diagnoses Acute respiratory failure with hypoxia J96.01 Pneumonia due to COVID-19 virus U07.1; J12.82 Asthma J45.909 Post traumatic stress disorder F43.10 Diabetes mellitus type 2, uncontrolled E11.65 Obesity (BMI 30-39.9) E66.9 Hyponatremia E87.1 DVT prophylaxis Z29.9
[2020-10-07] MEDS: guaiFENesin 600 MG TABCR PO SCH (21:13)
[2020-10-08] MEDS: guaiFENesin 600 MG TABCR PO SCH (08:19)
[2020-10-08] MEDS: ENOXAPARIN 80 MG/0.8 ML SYR SQ SCH (08:20)
[2020-10-08] MEDS: dexAMETHasone 4 MG TAB PO SCH (08:21)
[2020-10-08] MEDS: SERTRALINE HCL 100 MG TABLET PO SCH (08:21)
[2020-10-08] MEDS: CHOLECALCIFEROL 1,000 UNITS 25 MCG TAB PO SCH (08:21)
[2020-10-08] MEDS: SERTRALINE HCL 50 MG TABLET PO SCH (08:22)
[2020-10-08] MEDS: FLUTICASONE FUROATE 200MCG 14 PUFFS/INHALER INH SCH (08:25)
[2020-10-08 08:46] LABS: BUN Creatinine Ratio 21.3 (10-20); Creatinine Clr Calc Pharmacy 105.8 ml/min; Est GFR (African American) 83.2; Est GFR (Non-African American) 71.8; Potassium 4.6 mmol/L (3.5-5.1)
[2020-10-08] MEDS: INSULIN ASPART 100 UNITS/ML 3 ML PEN SC SCH ×2 (08:48→12:32)
--- NOTE | 2020-10-08 11:59 | Discharge Summary ---
Date of Service date of admission - September 30, 2020 date of discharge - October 08, 2020 Admission HPI Per Admitting Provider Ren Cortes is a 49-year-old male from [facility] with a 4-day history of shortness of breath, productive cough. [facility]% on room air. He was placed on a nonrebreather mask at 15 L with improved O2 sats of 92%. The patient significantly improved since arrival in the ER and start oxygen. Reports his main symptom is shortness of breath worse with coughing, exertion and lying flat. He notes a history of asthma but rarely requires his albuterol inhaler and hasn't helped much during this current illness. Productive cough with thick sputum. Other symptoms include loss of taste and smell, fatigue, mild headache and myalgias. He denies any fever, chills, sore throat, diarrhea, nausea/vomiting, chest or abdominal pain. In the ER his CXR concerning for multifocal pneumonia, subsequent SARS-COV2 PCR positive, influenza and RSV negative. He was given dexamethasone 6mg IV and referred to medicine for admission and ongoing management of COVID-19 pneumonia. Principal Diagnosis acute hypoxic respiratory failure 2nd to COVID-19 pneumonia Discharge Exam Constitutional + obese; no acute distress and no altered mental status ENMT external ear and nose normal, oropharynx normal Respiratory no respiratory distress Auscultation: + diminished lung sounds; no crackles and no wheezes Cardiovascular RRR, no murmur, no edema Heart Sounds: normal S1 and normal S2 Vessels: posterior tibial pulses present and dorsalis pedis pulses present; no JVD Gastrointestinal (Abdomen) normal bowel sounds, soft, nontender, no hepatosplenomegaly Psychiatric A+Ox3, euthymic affect Discharge Data Allergies Allergy/AdvReac Type Severity Reaction Status Date / Time No Known Allergies Allergy Unverified 09/30/20 14:32 Consultations diabetes education nutrition Procedures Performed Convalescent Plasma x 1 unit Ordered Studies 09/30/20 22:54 CT angio chest PE protocol Urgent IMPRESSION: 1. There is no evidence of central pulmonary embolus in the main or lobar pulmonary arteries. The segmental and subsegmental branches are not assessed. 2. Multifocal airspace consolidation is seen throughout both lungs and typical for multifocal pneumonia. Clinical correlation will be required and radiographic follow-up to resolution is recommended. 3. No pleural effusion is seen. 4. Enlarged hilar lymph nodes are likely reactive. Diabetes Follow up Diabetes Follow-up Needed for Newly Diagnosed Diabetes Hospital Course (1) Acute respiratory failure with hypoxia: Secondary to COVID-19 pneumonia. Initially on nonrebreather mask, then was weaned to oxymask and ultimately NC O2. He is transferring back to [facility] with nasal cannula in place. Suspect he will be able to be weaned to room air in the next week or two post- discharge. (2) Pneumonia due to COVID-19 virus: See CTA report for further details of radiographic findings. s/p Convalescent plasma on 09/30/20. Completed Remdesivir daily x 5 days, day 5 was on 10/04/20. Took course of dexamethasone while here; received 9 days in the hospital, will complete 10th day back at [facility]. O2 weaned to nasal cannula and will return back to [facility] with NC O2 in place. Suspect we can wean NC O2 off in the 1-2 weeks post-discharge. (3) Asthma: Continue Alvesco. No wheezing on exam at time of discharge. (4) Post traumatic stress disorder: Continue sertraline 125mg PO daily. (5) Diabetes mellitus type 2, uncontrolled: new diagnosis for patient. Hba1c 7.3%. metformin 500mg BID at d/c advised. while hospitalized required lantus/novolog due to steroids. Received Diabetes education consult and nutrition consult. Will need Type 2 DM diet back at [facility]. (6) Obesity (BMI 30-39.9): BMI 38.9 (7) Hyponatremia: mildly low at admission continues to be mildly low at discharge with level of 134 SIADH 2nd SSRI?? recommend repeat BMP 1 week post-discharge for stability (8) DVT prophylaxis: received lovenox 70mg BID while hospitalized due to high risk of VTE with COVID-19 infection. Total Time Total Time Spent Total Time Spent (In Minutes): 35 Total Time Includes: Examination of the Patient, Discharge Planning, Medication Reconciliation and Communication With Other Providers Discharge Plan Discharge Items [facility] Reason For Visit: COVID-19 PNEUMONIA, ACUTE HYPOXIC RESP FAILURE Discharge Diagnosis: 1. COVID-19 pneumonia 2. acute hypoxic respiratory failure due to #1 3. new-onset type 2 diabetes - hemoglobin a1c 7.3% Activity: As commented below Activity Comment: gradually increase activities over next 7-10 days Non-emergency contact: Primary Care Provider Call non-emergency contact if: you have any medication questions, your symptoms worsen and you have a fever Follow-up/Referrals: Reshma CERDA [Primary Care Provider] - Diet: Carb Consistent or DM2 Addtl Attending Provider Instructions: Patient was treated for COVID-19 pneumonia. Received convalescent plasma, remdesivir x 5 days, and dexamethasone x 9 days. Oxygen was weaned down to 1 liter NC prior to discharge. Patient was found to have new-onset type 2 diabetes with elevated blood sugars and hemoglobin a1c of 7.3%. He received education from executive housekeeper & nutrition. Recommendations - 1. dexamethasone 6mg x 1 on 10/09/20 then stop. 2. metformin 500mg twice daily with meals for T2DM. 3. check fingerstick blood sugars twice daily every day. 4. hemoglobin a1c in 3 months. 5. referral to pulmonary - diagnosis - asthma, resolving severe COVID-19 infection. 6. NC O2 1-2 liters - maintain sats >90%; wean off as tolerated. 7. frequent self-proning. 8. incentive spirometry and flutter valve - next 1-2 weeks. Pending Studies at Discharge: No Stand-Alone Forms: [facility] Sk[facility] Items Patient informed of condition?: Yes Discharge Level of Care: Other Communicable Disease: Yes Discharge Prognosis: Improving Lines: None Urinary Catheter: No Medications and DC Order Prescriptions: New metformin 500 mg tablet 500 mg PO BID Qty: 60 RF: 2 (DME) Oxygen Home Liters Per Minute 1 ea .Route .continuous Qty: 1 RF: 0 Continued sertraline 100 mg Tablet 100 mg PO QAM RF: 0 sertraline 25 mg Tablet 25 mg PO QAM RF: 0 levalbuterol tartrate [Xopenex HFA] 45 mcg/actuation Hfa Aerosol Inhaler 2 inh INHALATION Q6H RF: 0 Alvesco 160 mcg/actuation Hfa Aerosol Inhaler 1 puff INHALATION BID RF: 0 zinc sulfate 220 mg Tablet 220 mg PO BID 3 Days Qty: 6 RF: 0 Changed cholecalciferol (vitamin D3) [Vitamin D3] 25 mcg (1,000 unit) Capsule 50 mcg PO DAILY Qty: 0 RF: 0 Discontinued ibuprofen 600 mg Tablet 600 mg PO TID PRN (Reason: Pain) RF: 0 Discharge Orders: Discharge Order (Routine); Ordered 10/08/20 Ordered By: Bryan Saldana/Other Patient Handouts: Managing Type 2 Diabetes, 5 Steps for Eating Healthier, Diabetes: The Benefits of Exercise, Managing Diabetes: The A1C Test, Understanding Type 2 Diabetes Admission Data Admit Date/Time: 09/30/20 14:41 Attending Provider: Bryan Baum Admit Provider: Bryan Solis Primary Care Provider: Reshma CERDA Other Providers: Bryan Solis Other Interventions: Discharge Summary Assessment (RN) Last Done: 10/08/20 12:54 Coding Level of Care Code D/C Day Management >30 mins Diagnoses Acute respiratory failure with hypoxia J96.01 Pneumonia due to COVID-19 virus U07.1; J12.82 Asthma J45.909 Post traumatic stress disorder F43.10 Diabetes mellitus type 2, uncontrolled E11.65 Obesity (BMI 30-39.9) E66.9 Hyponatremia E87.1 DVT prophylaxis Z29.9
[2020-10-08] MEDS ORDERED: metFORMIN HCL 500 MG TAB PO ONE (12:00)
== END 2020-10-08 15:12 | DRG 177 ==
LOC: ED 12:21 → EDINP 14:41 → SUATTDRO 14:41 → EDINP 21:18 → 2S 10-01 07:19 → 3E 10-05 13:03